=== PATIENT | male | born 1990 | race Caucasian/White ===

== ENCOUNTER 2016-07-02 22:41 | Emergency (ER) | payer SELFPAY ==
--- NOTE | 2016-07-03 02:11 | ER Document Report ---
ED General - General Chief Complaint: Knee Pain Stated Complaint: LEFT KNEE PAIN Notes: Patient is a 25-year-old male presents with spreading erythema around his left knee that has been getting progressively worse for the last 3 days. Denies any swelling of the joint or limited range of motion of the knee. Continues to walk. States it started as a small pustule that he tried to drain unsuccessfully. Since that time he has had a dull, constant, burning pain to the affected area. Nothing improves or worsens the pain. No history of similar symptoms in the past. He denies fever or constitutional symptoms. He has not seen his primary care doctor regarding today's concerns. TRAVEL OUTSIDE OF THE [place] IN LAST 30 DAYS: No - Related Data Allergies/Adverse Reactions: amoxicillin trihydrate [From Augmentin] Allergy (Verified 02/07/15 01:09) Potassium Clavulanate * [From Augmentin] Allergy (Verified 02/07/15 01:09) sulfamethoxazole [From Bactrim] Allergy (Verified 02/07/15 01:09) trimethoprim [From Bactrim] Allergy (Verified 02/07/15 01:09) Past Medical History - General Information source: Patient - Social History Smoking Status: Never Smoker Frequency of alcohol use: None Drug Abuse: None Lives with: Spouse/Significant other Family History: Reviewed & Not Pertinent Patient has suicidal ideation: No Patient has homicidal ideation: No Renal/ Medical History: Denies: Hx Peritoneal Dialysis Review of Systems - Review of Systems Notes: Constitutional: Negative for fever. HENT: Negative for sore throat. Eyes: Negative for visual changes. Cardiovascular: Negative for chest pain. Respiratory: Negative for shortness of breath. Gastrointestinal: Negative for abdominal pain, vomiting or diarrhea. Genitourinary: Negative for dysuria. Musculoskeletal: Negative for back pain. Skin: Positive for rash. Neurological: Negative for headaches, weakness or numbness. 10 point ROS negative except as marked above and in HPI. Physical Exam - Vital signs Vitals: Temp Pulse Resp BP Pulse Ox 97.6 F 86 18 154/95 H 97 07/02/16 22:46 07/02/16 22:46 07/02/16 22:46 07/02/16 22:46 07/02/16 22:46 Interpretation: Hypertensive Notes: PHYSICAL EXAMINATION: GENERAL: Well-appearing, well-nourished and in no acute distress. HEAD: Atraumatic, normocephalic. EYES: Pupils equal round and reactive to light, extraocular movements intact, sclera anicteric, conjunctiva are normal. ENT: nares patent, oropharynx clear without exudates. Moist mucous membranes. NECK: Normal range of motion, supple without lymphadenopathy LUNGS: Breath sounds clear to auscultation bilaterally and equal. No wheezes rales or rhonchi. HEART: Regular rate and rhythm without murmurs ABDOMEN: Soft, nontender, normoactive bowel sounds. No guarding, no rebound. No masses appreciated. EXTREMITIES: Normal range of motion, no pitting or edema. No cyanosis. He with a range the left knee to 90 without difficulty. Full extension present NEUROLOGICAL: No focal neurological deficits. Moves all extremities spontaneously and on command. PSYCH: Normal mood, normal affect. SKIN: Warm, Dry, normal turgor, there is a small pustule to the lateral aspect of the right patella surface with a surrounding area of erythema that extends to the proximal one third of the tibial plateau and just above the knee. Course - Re-evaluation Re-evalutation: 07/03/16 02:09 Patient presents with a small abscess of the skin likely from an ingrown hair over the left patella with surrounding cellulitis. Patient is otherwise well in appearance. I do not suspect a actual septic joint. Patient is able to range the knee to full 90. No indication for x-ray imaging. The abscess was incised and drained at the bedside with 1 mL of purulent expression. He will be started on Keflex and doxycycline for staph and strep coverage.At this time will discharge with return precautions and follow-up recommendations. Verbal discharge instructions given a the bedside and opportunity for questions given. Medication warnings reviewed. Patient is in agreement with this plan and has verbalized understanding of return precautions and the need for primary care follow-up in the next 24-72 hours. - Vital Signs Vital signs: Temp Pulse Resp BP Pulse Ox 97.8 F 93 16 149/88 H 97 07/03/16 02:58 07/03/16 02:58 07/03/16 02:58 07/03/16 02:58 07/03/16 02:58 Procedures - Incision and Drainage Left Knee Time completed: 02:10 Type: Simple Anesthetic type: 1% Lidocaine mL's of anesthetic: 1 Blade size: 11 I&D procedure: Betadine prep applied Incision Method: Incision made by scalpel Amount/type of drainage: 1 cc of purulent expression Discharge - Discharge Clinical Impression: Cellulitis of leg, left Condition: Good Disposition: HOME, SELF-CARE Additional Instructions: The rash is likely due to infection of your skin. You need to take the antibiotics as prescribed. Do not stop even if the rash goes away until you have completed all the antibiotics. The area of redness was traced out here in the emergency department with a marking pen. You need to return to emergency department if the redness spreads outside of this area by more than 2 cm in any direction. You should also return if you develop fevers with temperature greater than 101, persistent vomiting, worsening pain, or have any other symptoms that are concerning to you. Prescriptions: Cephalexin Monohydrate [Keflex 500 mg Capsule] 500 mg PO QID #28 capsule Doxycycline Hyclate 100 mg PO BID #14 capsule
[2016-07-03] MEDS ORDERED: CEPHALEXIN 500 MG CAPSULE PO ONE (02:15)
[2016-07-03] MEDS ORDERED: DOXYCYCLINE HYCLATE 100 MG TABLET PO ONE (02:15)
[2016-07-03 03:00] VITALS: BP 149/88
== END 2016-07-03 02:15 | disposition home or self-care (01) ==
LOC: ER 22:41
PROC: 0H9LXZZ Drainage of Left Lower Leg Skin, External Approach (ICD-10-PCS; principal; 2016-07-02)
DX: M25.562 Pain in left knee (principal); L03.116 Cellulitis of left lower limb
CPT/HCPCS: 99283

== ENCOUNTER 2016-07-05 01:51 | Inpatient (IN) | payer SELFPAY ==
[2016-07-05] MEDS ORDERED: VANCOMYCIN HCL INJ 1000 MG VIAL IV ONE (03:34)
--- NOTE | 2016-07-05 03:36 | ER Document Report ---
ED Suture/Wound Recheck - General Chief Complaint: Abscess Recheck Stated Complaint: LEFT KNEE PAIN Mode of Arrival: Ambulatory Information source: Patient TRAVEL OUTSIDE OF THE [place] IN LAST 30 DAYS: No - HPI Patient complains to provider of: left knee abscess recheck Notes: Patient arrives with complaints of left knee pain and redness. Patient was seen here 2 days ago was noted to have an abscess and cellulitis to the anterior knee. He had an I&D performed here in the ED with approximately 1 mL' s of purulent material drained. The patient was discharged home on Keflex and doxycycline which she has been taking. He states that today he noticed a small amount of purulent material coming from the hole from his prior I&D and states that now he is left knee and zhu are red and more painful. He is able to bear weight and flex his knee. He denies any actual fever, although he states he has been sweating a lot. He denies any nausea, vomiting, diarrhea. Denies any other injuries. He denies any numbness, tingling, weakness. He denies any other complaints. Pain is worse with movement and touching the area. - Related Data Allergies/Adverse Reactions: amoxicillin trihydrate [From Augmentin] Allergy (Verified 07/05/16 03:05) Potassium Clavulanate * [From Augmentin] Allergy (Verified 07/05/16 03:05) sulfamethoxazole [From Bactrim] Allergy (Verified 07/05/16 03:05) trimethoprim [From Bactrim] Allergy (Verified 07/05/16 03:05) Past Medical History - Social History Smoking Status: Unknown if Ever Smoked Chew tobacco use (# tins/day): No Family History: Reviewed & Not Pertinent Patient has suicidal ideation: No Patient has homicidal ideation: No Renal/ Medical History: Denies: Hx Peritoneal Dialysis Review of Systems - Review of Systems -: Yes All other systems reviewed and negative Physical Exam - Vital signs Vitals: Temp Pulse Resp BP Pulse Ox 98.4 F 87 20 141/96 H 99 07/05/16 01:54 07/05/16 01:54 07/05/16 01:54 07/05/16 01:54 07/05/16 01:54 - Notes Notes: GENERAL: alert, cooperative, nontoxic, no distress. HEAD: normocephalic, atraumatic EYES: conjunctiva pink without discharge, no external redness or swelling. EARS: no external swelling, no external redness NOSE: atraumatic, no external swelling MOUTH/THROAT: mucous membranes moist and pink, posterior pharynx without erythema, swelling, exudate. No trismus or drooling. NECK: soft, supple, full range of motion, no meningismus. CHEST: no distress, lungs clear and equal throughout. No wheezing, rales, rhonchi. CARDIAC: regular rate and rhythm, no murmur, normal capillary refill, normal pulses. No peripheral edema noted. ABDOMEN: Soft, nontender. BACK: full range of motion, no CVA tenderness. EXTREMITIES: The patient's noted to have cellulitis from the superior aspect of the patella down to the ankle on the left leg. He has full flexion and extension of the left knee with no sign of joint infection. There is a small amount of purulent material noted at the opening from prior I&D. No fluctuant abscess identified. Normal pulse and sensation distally. NEURO: alert and oriented 3, no focal deficits, full range of motion of all extremities. PYSCH: appropriate mood, affect. Patient is cooperative. SKIN: pink, warm, dry, no rash. Cellulitis to the left lower leg. Course - Re-evaluation Re-evalutation: 07/05/16 05:20 Patient resting comfortable with this time with stable vitals. Patient's nontoxic appearing. CT shows no drainable abscess or sign of osteomyelitis. Patient's review have an elevated white blood cell count. Blood cultures and wound culture are currently pending. Due to the fact that the patient has been on oral antibiotics for the last 2 days and is now having worsening redness to the entire anterior lower leg, patient was given a dose of IV antibiotics and we 'll discuss the case with the hospitalist for admission for IV antibiotics for cellulitis and outpatient antibiotic failure. I have attempted to contact the hospitalists at this time without success. 07/05/16 05:36 Discussed case with the hospitalist who agrees with admission. The patient will be admitted for further evaluation and management of his cellulitis. 07/05/16 05:37 The patient is noted to have elevated blood pressure during today's emergency department visit. The patient was informed of this finding. The patient was instructed that this may be related to pre-hypertension and requires further evaluation with a primary care provider. The patient has no hypertensive symptoms at this time. - Vital Signs Vital signs: Temp Pulse Resp BP Pulse Ox 98.4 F 99 20 141/96 H 98 07/05/16 01:56 07/05/16 01:56 07/05/16 01:56 07/05/16 01:56 07/05/16 01:56 - Laboratory Result Diagrams: 07/05/16 03:30 07/05/16 03:30 Laboratory results interpreted by me: 07/05/16 07/05/16 03:30 03:30 WBC 12.9 H Total Bilirubin 1.7 H - Diagnostic Test Radiology reviewed: Image reviewed, Reports reviewed - CT shows no drainable abscess or signs of osteomyelitis. Discharge - Discharge Clinical Impression: Cellulitis of left lower extremity Condition: Stable Disposition: ADMITTED OBSERVATION Admitting Provider: Hospitalist - Dr. Ramírez Unit Admitted: Medical Floor
[2016-07-05 03:50] LABS: ABSOLUTE BASOPHILS # (AUTO) 0.1 10^3/uL (0.0-0.2); ABSOLUTE LYMPHOCYTES (AUTO) 3.7 10^3/uL (0.5-4.7); ABSOLUTE MONOCYTES (AUTO) 1.1 10^3/uL (0.1-1.4); BASOPHILS % (AUTO) 0.5 % (0-2); EOSINOPHILS % (AUTO) 0.3 % (0-6); HEMATOCRIT 43.6 % (37.9-51.0); HEMOGLOBIN 15.6 g/dL (13.5-17.0); HGB HCT DIFFERENCE 3.2; LYMPHOCYTES % (AUTO) 28.8 % (13-45); MEAN CORPUSCULAR HEMOGLOBIN 31.4 pg (27.0-33.4); MEAN CORPUSCULAR HGB CONC 35.7 g/dL (32.0-36.0); MEAN CORPUSCULAR VOLUME 88 fl (80-97); MONOCYTES % (AUTO) 8.6 % (3-13); RED BLOOD COUNT 4.97 10^6/uL (4.35-5.55); SEGMENTED NEUTROPHILS % (AUTO) 61.8 % (42-78); WHITE BLOOD COUNT 12.9 10^3/uL (4.0-10.5)
[2016-07-05 04:14] LABS: ALANINE AMINOTRANSFERASE 54 U/L (21-72); ALBUMIN 4.6 g/dL (3.5-5.0); ALKALINE PHOSPHATASE 104 U/L (38-126); ANION GAP 14 (5-19); ASPARTATE AMINO TRANSFERASE 37 U/L (17-59); BILIRUBIN,DIRECT 0.4 mg/dL (0.0-0.4); BILIRUBIN,TOTAL 1.7 mg/dL (0.2-1.3); BLOOD UREA NITROGEN 15 mg/dL (7-20); CALCIUM 9.7 mg/dL (8.4-10.2); CARBON DIOXIDE 27 mmol/L (22-30); CHLORIDE 102 mmol/L (98-107); CREATININE RESULT 0.82 mg/dL (0.52-1.25); GLUCOSE 98 mg/dL (75-110); POTASSIUM 4.4 mmol/L (3.6-5.0); SODIUM 142.8 mmol/L (137-145); TOTAL PROTEIN 7.3 g/dL (6.3-8.2)
[2016-07-05] MEDS ORDERED: ACETAMINOPHEN 325 MG TABLET PO PRN (05:33)
[2016-07-05] MEDS ORDERED: ONDANSETRON HCL INJ/PF 4 MG/2 ML SDV IV PRN (05:33)
[2016-07-05] MEDS ORDERED: NORMAL SALINE 1000 ML 1,000 ML IV ONE (05:35)
[2016-07-05] MEDS ORDERED: VANCOMYCIN HCL 0 MG in DEXTROSE 5%-WATER 250 ML IV NR (05:45)
[2016-07-05] MEDS: HEPARIN SOD (PORCINE) 5,000 UNIT/ML 1 ML SYRINGE SUBCUT SCH ×3 (06:18→22:49)
--- NOTE | 2016-07-05 06:34 | PDOC H&P ---
History of Present Illness Admission Date/PCP: 07/05/16 05:33 Patient complains of: Left knee pain and swelling History of Present Illness: JUAN CARLOS BONILLA is a 25 year old male with a past medical history of remote tracheomalacia with residual altered voice and GERD. Who is seen in the emergency room 48 hours ago for an abscess to the left knee he had an IND performed and discharge with Keflex and doxycycline but has had worsening erythema and pain prompting a return to the emergency room for evaluation. He' s found to have leukocytosis and marketed localized swelling to the knee joint with reduced range of motion secondary to pain and swelling. CT of the joint is unremarkable patient is placed on vancomycin, symptomatically management referred to the hospitalist for admission. Patient denies prior episode of MRSA Past Medical History Medical History: None Past Surgical History Past Surgical History: Reports: Other - 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 and GERD Social History Information Source: Patient Lives with: Family Smoking Status: Unknown if Ever Smoked Hx Recreational Drug Use: No Drugs: None Hx Prescription Drug Abuse: No - Advance Directive Resuscitation Status: Full Code Family History Family History: Hypertension Parental Family History Reviewed: Yes Children Family History Reviewed: Yes Sibling(s) Family History Reviewed.: Yes Medication/Allergy Home Medications: Clindamycin HCl 300 mg PO ASDIR #56 capsule 02/07/15 Cephalexin Monohydrate [Keflex 500 mg Capsule] 500 mg PO QID #28 capsule Doxycycline Hyclate 100 mg PO BID #14 capsule 07/03/16 Allergies/Adverse Reactions: amoxicillin trihydrate [From Augmentin] Allergy (Verified 07/05/16 03:05) Potassium Clavulanate * [From Augmentin] Allergy (Verified 07/05/16 03:05) sulfamethoxazole [From Bactrim] Allergy (Verified 07/05/16 03:05) trimethoprim [From Bactrim] Allergy (Verified 07/05/16 03:05) Review of Systems Constitutional: ABSENT: chills, fever(s), headache(s), weight gain, weight loss Eyes: ABSENT: visual disturbances Ears: ABSENT: hearing changes Cardiovascular: ABSENT: chest pain, dyspnea on exertion, edema, orthropnea, palpitations Respiratory: ABSENT: cough, hemoptysis Gastrointestinal: ABSENT: abdominal pain, constipation, diarrhea, hematemesis, hematochezia, nausea, vomiting Genitourinary: ABSENT: dysuria, hematuria Musculoskeletal: ABSENT: joint swelling Integumentary: ABSENT: rash, wounds Neurological: ABSENT: abnormal gait, abnormal speech, confusion, dizziness, focal weakness, syncope Psychiatric: ABSENT: anxiety, depression, homidical ideation, suicidal ideation Endocrine: ABSENT: cold intolerance, heat intolerance, polydipsia, polyuria Hematologic/Lymphatic: ABSENT: easy bleeding, easy bruising Physical Exam Vital Signs: Temp Pulse Resp BP Pulse Ox 98.4 F 99 20 141/96 H 98 07/05/16 01:56 07/05/16 01:56 07/05/16 01:56 07/05/16 01:56 07/05/16 01:56 General appearance: PRESENT: no acute distress, well-developed, well-nourished Head exam: PRESENT: atraumatic, normocephalic Eye exam: PRESENT: conjunctiva pink, EOMI, PERRLA. ABSENT: scleral icterus Ear exam: PRESENT: normal external ear exam Mouth exam: PRESENT: moist, tongue midline Neck exam: ABSENT: carotid bruit, JVD, lymphadenopathy, thyromegaly Respiratory exam: PRESENT: clear to auscultation ilda. ABSENT: rales, rhonchi, wheezes Cardiovascular exam: PRESENT: RRR. ABSENT: diastolic murmur, rubs, systolic murmur Pulses: PRESENT: normal dorsalis pedis pul Vascular exam: PRESENT: normal capillary refill GI/Abdominal exam: PRESENT: normal bowel sounds, soft. ABSENT: distended, guarding, mass, organolmegaly, rebound, tenderness Rectal exam: PRESENT: deferred Extremities exam: PRESENT: joint swelling - Left knee joint swelling and pain Neurological exam: PRESENT: alert, awake, oriented to person, oriented to place , oriented to time, oriented to situation, CN II-XII grossly intact. ABSENT: motor sensory deficit Psychiatric exam: PRESENT: appropriate affect, normal mood. ABSENT: homicidal ideation, suicidal ideation Skin exam: PRESENT: other - 0.5 x 0.5 cm Open ulcer over the left patella with serosanguineous drainage Adult Front & Back Image: 1 - Erythema swelling and pain Results Impressions: Lower Extremity CT 07/05/16 03:33 IMPRESSION: Generalized prepatellar soft tissue swelling without definitive abscess. No evidence for osteomyelitis. Assessment & Plan - Diagnosis (1) MRSA cellulitis Is this a current diagnosis for this admission?: YesPlan: Vancomycin empirically patient's history is complicated by Augmentin and Bactrim allergies. Follow-up CBC and culture pending consider orthopedic consultation for arthrocentesis if not significantly improved in 24 hours (2) Leg pain Is this a current diagnosis for this admission?: YesPlan: Symptomatic management - Time Time Spent: 30 to 50 Minutes
[2016-07-05] MEDS: KETOROLAC TROMETHAMINE INJ/PF 30 MG/1 ML SDV IV PRN ×2 (11:13→17:15)
[2016-07-05] MEDS: DOCUSATE SODIUM 100 MG CAPSULE PO SCH ×2 (11:14→17:10)
[2016-07-05] MEDS: VANCOMYCIN HCL 1,250 MG in DEXTROSE 5%-WATER 250 ML IV SCH ×2 (11:14→17:10)
[2016-07-06 02:41] LABS: CREATININE RESULT 0.75 mg/dL (0.52-1.25)
[2016-07-06] MEDS: VANCOMYCIN HCL 1,250 MG in DEXTROSE 5%-WATER 250 ML IV SCH (02:48)
[2016-07-06] MEDS: KETOROLAC TROMETHAMINE INJ/PF 30 MG/1 ML SDV IV PRN (02:50)
[2016-07-06] MEDS: HEPARIN SOD (PORCINE) 5,000 UNIT/ML 1 ML SYRINGE SUBCUT SCH (06:01)
[2016-07-06 06:58] LABS: ABSOLUTE EOSINOPHILS # (AUTO) 0.1 10^3/uL (0.0-0.6); ABSOLUTE LYMPHOCYTES (AUTO) 2.9 10^3/uL (0.5-4.7); ABSOLUTE MONOCYTES (AUTO) 0.6 10^3/uL (0.1-1.4); BASOPHILS % (AUTO) 0.6 % (0-2); EOSINOPHILS % (AUTO) 1.2 % (0-6); HEMATOCRIT 40.4 % (37.9-51.0); HEMOGLOBIN 14.6 g/dL (13.5-17.0); HGB HCT DIFFERENCE 3.4; LYMPHOCYTES % (AUTO) 38.2 % (13-45); MEAN CORPUSCULAR HEMOGLOBIN 31.2 pg (27.0-33.4); MEAN CORPUSCULAR VOLUME 87 fl (80-97); MONOCYTES % (AUTO) 7.2 % (3-13); RED BLOOD COUNT 4.67 10^6/uL (4.35-5.55); RED CELL DISTRIBUTION WIDTH 12.1 % (11.5-14.0); SEGMENTED NEUTROPHILS % (AUTO) 52.8 % (42-78); WHITE BLOOD COUNT 7.6 10^3/uL (4.0-10.5)
[2016-07-06 08:35] VITALS: BP 126/77
[2016-07-06] MEDS: DOCUSATE SODIUM 100 MG CAPSULE PO SCH (09:48)
[2016-07-06] MEDS ORDERED: LANSOPRAZOLE 30 MG TAB.RAP.DR PO SCH (10:00)
[2016-07-06] MEDS ORDERED: VANCOMYCIN HCL 1,500 MG in DEXTROSE 5%-WATER 250 ML IV SCH (10:00)
--- NOTE | 2016-07-06 15:45 | PDOC DISCHARGE SUMMARY ---
General - Admit/Disc Date/PCP Admission Date/Primary Care Provider: 07/05/16 08:02 Discharge Date: 07/06/16 - Discharge Diagnosis (1) Left leg cellulitis Is this a current diagnosis for this admission?: YesSummary: Patient failed outpatient antibiotic therapy with keflex and doxycyline. Cellulitis is all but resolved today. Will continue clindaycin 300 mg po qid x 9 days. Naproxen 500 mg po q12h for pain - Additional Information Resuscitation Status: Full Code Discharge Diet: Regular Discharge Activity: Activity As Tolerated, Balance Activity w/Rest Home Medications: Lansoprazole [Prevacid 30 mg Odt Tablet] 30 mg PO DAILY 07/05/16 Multivit-Min/Iron Fum/Folic AC [Kwutc-Nhzatwh-Drjnleje Tablet] 1 tab PO DAILY Acetaminophen [Tylenol 325 mg Tablet] 650 mg PO Q4HP PRN tablet 07/06/16 Clindamycin HCl [Cleocin 300 mg Capsule] 300 mg PO QID #40 capsule 07/06/16 Naproxen Sodium [Naprelan] 500 mg PO BID PRN #30 tablet.sa 07/06/16 History of Present Illness Patient complains of: Left knee redness and swelling History of Present Illness: JUAN CARLOS BONILLA is a 25 year old male with a past medical history of remote tracheomalacia with residual altered voice and GERD. Who is seen in the emergency room 48 hours ago for an abscess to the left knee he had an IND performed and discharge with Keflex and doxycycline but has had worsening erythema and pain prompting a return to the emergency room for evaluation. He' s found to have leukocytosis and marketed localized swelling to the knee joint with reduced range of motion secondary to pain and swelling. CT of the joint is unremarkable patient is placed on vancomycin, symptomatically management referred to the hospitalist for admission. Patient denies prior episode of MRSA Hospital Course Hospital Course: Patient was admitted to the hospitalist's service for admission. He was started on Zosyn IV and Vancomycin IV. Blood cultures and wound cultures were pending. Wound culture today showed gram positive cocci in clusters. The erythema and swelling are almost completely resolved. He would like to be discharged home. Leucocytosis has resolved. Physical Exam Vital Signs: Temp Pulse Resp BP Pulse Ox 98.2 F 87 18 126/77 H 100 07/06/16 10:36 07/06/16 10:36 07/06/16 10:36 07/06/16 10:36 07/06/16 10:36 Intake & Output 07/05/16 07/06/16 07/07/16 06:59 06:59 06:59 Intake Total 1150 650 Balance 1150 650 Weight 88.4 kg General appearance: PRESENT: no acute distress, well-developed, well-nourished Head exam: PRESENT: atraumatic, normocephalic Eye exam: PRESENT: conjunctiva pink, EOMI, PERRLA. ABSENT: scleral icterus Ear exam: PRESENT: normal external ear exam Mouth exam: PRESENT: moist, tongue midline Neck exam: ABSENT: carotid bruit, JVD, lymphadenopathy, thyromegaly Respiratory exam: PRESENT: clear to auscultation ilda. ABSENT: rales, rhonchi, wheezes Cardiovascular exam: PRESENT: RRR. ABSENT: diastolic murmur, rubs, systolic murmur Pulses: PRESENT: normal dorsalis pedis pul Vascular exam: ABSENT: normal capillary refill, pallor, other GI/Abdominal exam: PRESENT: normal bowel sounds, soft. ABSENT: distended, guarding, mass, organolmegaly, rebound, tenderness Rectal exam: PRESENT: deferred Extremities exam: PRESENT: tenderness - left anterior knee Musculoskeletal exam: PRESENT: ambulatory, tenderness - anterior lateral to left patella, 1 cm area of remaing erythema Neurological exam: PRESENT: alert Psychiatric exam: PRESENT: appropriate affect, normal mood. ABSENT: homicidal ideation, suicidal ideation Skin exam: PRESENT: erythema - 1 cm erythema, warm, other Results Laboratory Results: 07/06/16 06:25 07/06/16 01:53 07/06/16 07/06/16 01:53 06:25 WBC 7.6 RBC 4.67 Hgb 14.6 Hct 40.4 MCV 87 MCH 31.2 MCHC 36.0 RDW 12.1 Plt Count 256 Seg Neutrophils % 52.8 Lymphocytes % 38.2 Monocytes % 7.2 Eosinophils % 1.2 Basophils % 0.6 Absolute Neutrophils 4.0 Absolute Lymphocytes 2.9 Absolute Monocytes 0.6 Absolute Eosinophils 0.1 Absolute Basophils 0.0 Creatinine 0.75 Est GFR ( Amer) > 60 Est GFR (Non-Af Amer) > 60 Impressions: Lower Extremity CT 04/16/17 03:33 IMPRESSION: Generalized prepatellar soft tissue swelling without definitive abscess. No evidence for osteomyelitis. Qualifiers PATEINT BEING DISCHARGED WITH ANY OF THE FOLLOWING DIAGNOSIS?: No Plan Discharge Plan: Home with Time Spent: Less than 30 Minutes
== END 2016-07-06 11:32 | disposition home or self-care (01) | DRG 603 ==
LOC: ER 01:51 → EH 05:33 → UNDOADMOB 05:41 → EH 05:41 → OBSVTOIN 08:02 → 4N 10:33
PROVIDERS: ADMIT Internal Medicine; ATTEND Internal Medicine
DX: L03.116 Cellulitis of left lower limb (principal); B95.62 Methicillin resistant Staphylococcus aureus infection as the cause of diseases classified elsewhere; K21.9 Gastro-esophageal reflux disease without esophagitis; Z79.899 Other long term (current) drug therapy; Z88.0 Allergy status to penicillin; Z88.8 Allergy status to other drugs, medicaments and biological substances; Z88.2 Allergy status to sulfonamides; Z88.3 Allergy status to other anti-infective agents; Z82.49 Family history of ischemic heart disease and other diseases of the circulatory system
CPT/HCPCS: 36415; 80053; 80202; 82565; 85025; 87040; 87070; 87075; 87077; 87186; 87205; 96361; 96365; 96372; 99285; G0378; J1644; J1885; J3370; J7030; J7060

== ENCOUNTER 2016-12-25 23:48 | Emergency (ER) | payer SELFPAY ==
--- NOTE | 2016-12-26 01:12 | ER Document Report ---
ED Eye Complaint - General Chief Complaint: Eye Problem Stated Complaint: EYE AND ABDOMINAL PAIN Time Seen by Provider: 12/26/16 00:57 Mode of Arrival: Ambulatory Information source: Patient Notes: Patient is a 26-year-old male comes into the emergency room with 3 major complaints this major complaint #1 is his right eye is bloodshot and itchy with having some crusting over in the morning when he wakes up. Other thing is he has some bilateral numbness and tingling in his fingers when he is driving and when he does some repetitive motion work in 3 mother has a history of fibromyalgia patient states he feels kind of a upset abdominal area occasionally been going on since July comes and goes but nothing real specific and wanted to know if that was related to fibromyalgia. Currently is only asking that we intervene on his eye and possible wrist problems. TRAVEL OUTSIDE OF THE [place] IN LAST 30 DAYS: No - HPI Onset: Other - The eye has been going on for approximately 3 days and his wrist numbness and tingling in his fingers of both hands and up to the elbows for about 3 months. Denies any known trauma. 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 Eye location: Right Injury: No Occurred at: Other - Unknown Quality of pain: Other - Itchy Severity: Mild Pain Level: 2 Safety glasses worn: No Contact lenses worn: No Associated symptoms: Itching, Redness. denies: Pain, Photophobia, Eyelid swelling, Orbital swelling, Foreign body sensation, Blurred vision, Decreased vision - Related Data Allergies/Adverse Reactions: amoxicillin trihydrate [From Augmentin] Allergy (Verified 07/05/16 03:05) Potassium Clavulanate * [From Augmentin] Allergy (Verified 07/05/16 03:05) sulfamethoxazole [From Bactrim] Allergy (Verified 07/05/16 03:05) trimethoprim [From Bactrim] Allergy (Verified 07/05/16 03:05) Past Medical History - General Information source: Patient - Social History Smoking Status: Never Smoker Chew tobacco use (# tins/day): No Frequency of alcohol use: None Drug Abuse: None Lives with: Family Family History: None, Hypertension - Medical History Medical History: Negative - Past Medical History Cardiac Medical History: Reports: None Pulmonary Medical History: Reports: None EENT Medical History: Reports: None Neurological Medical History: Reports: None Endocrine Medical History: Reports: None Renal/ Medical History: Reports: None. 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 denies: Double vision Cardiovascular: No symptoms reported Respiratory: No symptoms reported Gastrointestinal: No symptoms reported Genitourinary: No symptoms reported Male Genitourinary: No symptoms reported Skin: No symptoms reported Hematologic/Lymphatic: No symptoms reported Neurological/Psychological: Numbness, Tingling -: Yes All other systems reviewed and negative Physical Exam - Vital signs Vitals: Temp Pulse Resp BP Pulse Ox 97.8 F 83 16 150/96 H 96 12/25/16 23:52 12/25/16 23:52 12/25/16 23:52 12/25/16 23:52 12/25/16 23:52 Interpretation: Hypertensive - Notes Notes: Physical exam patient shows patient to be mildly uncomfortable. Has a little bit of laryngitis noted in his speaking. - General General appearance: Appears well, Other - Slightly uncomfortable appearing In distress: None - HEENT Head: Normocephalic, Atraumatic Eyes: Tears, Other - Examination patient's right eye shows that there is a mild subconjunctival hemorrhage on the lateral side of the right eye. Conjunctiva is moderately red. Also evaluating patient for injected conjunctiva on the medial aspect of the eye as well. Patient has some mild tearing and watering there is no sign of any crusting at this time. Tangential light does not show any sign of a foreign body and patient has no foreign body sensation.. No: Pale conjunctiva, Periorbital edema Conjunctiva: Injected Eyelashes: Normal Pupils: PERRL Visual acuity- Right eye: 20/25 Visual acuity- Left eye: 20/20 Visual acuity- Both eyes: 20/20 Corrective lenses worn: Yes Visual cline normal: Yes Ears: Normal Tympanic membrane: Normal Sinus: Maxillary Nasal: Clear rhinorrhea. No: Normal Mouth/Lips: Normal Mucous membranes: Moist Pharynx: Normal Neck: Normal - Respiratory Respiratory status: No respiratory distress Chest status: Nontender Breath sounds: Normal. No: Rales, Rhonchi, Stridor, Wheezing Chest palpation: Normal - Cardiovascular Rhythm: Regular Heart sounds: Normal auscultation Murmur: No - Abdominal Inspection: Normal Distension: No distension Bowel sounds: Normal Tenderness: Tender. No: McBurney's point, [place]'s sign, Guarding, Rebound Organomegaly: No: No organomegaly - Back Back: Normal. No: Vertebra tenderness - Extremities General upper extremity: Other - Examination patient's bilateral upper extremities and particularly his bilateral median nerves with a new median nerve strike patient has positive radiation of numbness and tingling both to the fingers on in both hands on the third fourth and fifth digits. Patient also has a positive Phalen's sign. Further inspection shows that he has good Flow in the nailbeds of both hands in the fingertips. 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 He has good radial and ulnar pulses. Patient also has good upper extremity DTRs.. No: Normal inspection General lower extremity: Normal inspection Wrist: Tender. 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 negative: Erythema Skin Turgor: Elastic Course - Vital Signs Vital signs: Temp Pulse Resp BP Pulse Ox 97.8 F 83 16 150/96 H 96 12/25/16 23:52 12/25/16 23:52 12/25/16 23:52 12/25/16 23:52 12/25/16 23:52 - Transfer of Care Notes: I discussed with patient about fibromyalgia and possible congenital connections. I have informed him this is something we do [place] here to emergency room. Patient has no real severe abdominal pain or discomfort he has no nausea or vomiting his physical exam on the abdomen is really benign. This point of inform patient he probably needs to go to a clinic and have further workup done. At this point we are going to treating for a allergic junk colitis as well as a subconjunctival hemorrhage. Both of them on the right. As well as some carpal tunnel syndrome we will treat with some steroids. 12/26/16 01:21 Discharge - Discharge Clinical Impression: Subconjunctival hemorrhage of right eye, Allergic conjunctivitis of right eye, Carpal tunnel syndrome, bilateral upper limbs Disposition: HOME, SELF-CARE Instructions: Conjunctivitis, Allergic Additional Instructions: Also treated for a allergic conjunctivitis as well as bilateral carpal tunnel syndrome. And a subconjunctival hemorrhage in the right side. The hemorrhage could be caused by any number of things including sneezing coughing bending over lifting any number of things can cause you to possible blood vessel in the eye. With the prominence of that are out there currently allergic conjunctivitis is a high possibility wire have been watering and crusting. Highly suggest washing hands anytime you touch her eyes. I have also informed to you probably need to follow-up with a primary care or walk-in clinic for further workup on your "fibromyalgia". Get over the counter Antihistamin eye drops. Called Opcon-A Prescriptions: Prednisone [Sterapred Ds] 10 mg PO ASDIR PRN 6 Days #1 tab.ds.pk PRN Reason: Forms: Elevated Blood Pressure
[2016-12-26 01:47] VITALS: BP 134/94
== END 2016-12-26 02:16 | disposition home or self-care (01) ==
LOC: ER 23:48
DX: G56.03 Carpal tunnel syndrome, bilateral upper limbs (principal); H11.31 Conjunctival hemorrhage, right eye; H10.11 Acute atopic conjunctivitis, right eye; H57.11 Ocular pain, right eye; R10.9 Unspecified abdominal pain
CPT/HCPCS: 99283

== ENCOUNTER 2017-03-21 01:08 | Emergency (ER) | payer SELFPAY ==
[2017-03-21 01:14] VITALS: BP 146/98
--- NOTE | 2017-03-21 02:12 | ER Document Report ---
HPI - HPI Pain Level: 3 Notes: Patient is a 26-year-old male with a history of previous MRSA infection who presents ED complaining of a small abscess in his right nostril with intermittent purulent discharge. Patient states that he believes that he has a MRSA infection in his nose. Patient states that his symptoms began over the last couple days. He is still eating and drinking without difficulties. He is urinating normally and having normal bowel movements. Patient denies any other recent illness. She states that he is allergic to Augmentin and Bactrim. Denies any headache, fever, head injury, neck pain, URI, sore throat, chest pain , palpitations, syncope, cough, shortness of breath, wheeze, dyspnea, abdominal pain, nausea/vomiting/diarrhea, urinary retention, dysuria, hematuria. - ROS Notes: REVIEW OF SYSTEMS: CONSTITUTIONAL : Denies fever, chills, or sweats. Denies recent illness. EENT: Denies eye, ear, throat, or mouth pain or symptoms. Denies nasal or sinus congestion or discharge. Denies throat, tongue, or mouth swelling or difficulty swallowing. CARDIOVASCULAR: Denies chest pain. Denies palpitations or racing or irregular heart beat. RESPIRATORY: Denies cough, cold, or chest congestion. Denies shortness of breath, difficulty breathing, or wheezing. GASTROINTESTINAL: Denies abdominal pain or distention. Denies nausea, vomiting , or diarrhea. Denies blood in vomitus, stools, or per rectum. Denies black, tarry stools. Denies constipation. GENITOURINARY: Denies difficulty urinating, painful urination, burning, frequency, blood in urine, or discharge. MUSCULOSKELETAL: Denies back or neck pain or stiffness. Denies joint pain or swelling. SKIN: see hpi NEUROLOGICAL: Denies passing out or loss of consciousness. Denies dizziness or lightheadedness. Denies headache. Denies problems with gait or speech. Denies sensory loss, numbness, or tingling. Denies seizures. ALL OTHER SYSTEMS REVIEWED AND NEGATIVE. 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 HEAD: Atraumatic, normocephalic. EYES: Pupils equal round and reactive to light, extraocular movements intact, sclera anicteric, conjunctiva are normal. ENT: EAC clear b/l. TM's intact b/l without erythema, fluid, or perforation. Nares patent and without discharge. oropharynx clear without exudates. No tonsilar hypertrophy or erythema. Moist mucous membranes. No sinus tenderness. NECK: Normal range of motion, supple without lymphadenopathy LUNGS: Breath sounds clear to auscultation bilaterally and equal. No wheezes rales or rhonchi. HEART: Regular rate and rhythm without murmurs, rubs, gallops. NEUROLOGICAL: Cranial nerves grossly intact. PSYCH: Normal mood, normal affect. SKIN: Rt nostril: + small 0.3cm abscess noted with site erythema. No streaks. + mild tenderness. The erythema does not extend to the lower nare and is in near the distal opening superiorly. - INFECTION CONTROL TRAVEL OUTSIDE OF THE [place] IN LAST 30 DAYS: No - RESPIRATORY O2 Sat by Pulse Oximetry: 99 Course - Re-evaluation Re-evalutation: 03/21/17 02:10 Patient is an afebrile, well-hydrated, 26-year-old male who presents the ED with a very small abscess to the right nostril. Scant purulent discharge was expressed and a wound culture was obtained. Vitals are stable. PE is otherwise unremarkable. Patient does have a history of MRSA, so I will cover him with clindamycin. Advised using mupirocin cream inside of the nose 2-3 times a day for 2 weeks. Conservative measures otherwise for symptoms. Recheck with your PCM in 3-5 days. Return to the ED with any worsening/ concerning symptoms otherwise as reviewed in discharge. Patient is in agreement. - Vital Signs Vital signs: Temp Pulse Resp BP Pulse Ox 97.9 F 74 18 146/98 H 99 03/21/17 01:13 03/21/17 01:13 03/21/17 01:13 03/21/17 01:13 03/21/17 01:13 Discharge - Discharge Clinical Impression: Abscess Condition: Stable Disposition: HOME, SELF-CARE Instructions: Abscess ([facility]), Clindamycin ([facility]) Additional Instructions: Keep the skin clean Wash with soap and water Tylenol/ibuprofen if needed Triple antibiotic ointment 3x daily as directed for 2-3 weeks Consider bleach bath Take medication as directed Monitor for any worsening symptoms Recheck with your PCM in 3-5 days Return to the ED with any worsening symptoms and/or development of fever, headache, chest pain, palpitations, syncope, shortness of breath, trouble breathing, abdominal pain, n/v/d, abscess, purulent discharge, red streaks, worsening swelling, or other worsening symptoms that are concerning to you. Prescriptions: Clindamycin HCl [Cleocin 300 mg Capsule] 300 mg PO TID #30 capsule Mupirocin 1 gm TP TID #1 bottle Forms: Elevated Blood Pressure Referrals: EMMANUEL ORTIZ MD [ACTIVE STAFF] - Follow up as needed
[2017-03-21] MEDS ORDERED: CLINDAMYCIN HCL 150 MG CAPSULE PO ONE (02:13)
== END 2017-03-21 02:52 | disposition home or self-care (01) ==
LOC: ER 01:08
DX: J34.0 Abscess, furuncle and carbuncle of nose (principal); Z86.14 Personal history of Methicillin resistant Staphylococcus aureus infection
CPT/HCPCS: 87070; 87077; 87186; 87205; 99283

== ENCOUNTER 2017-06-24 23:28 | Emergency (ER) | payer SELFPAY ==
[2017-06-25] MEDS ORDERED: SUCRALFATE 1 GM TABLET PO ONE (04:04)
[2017-06-25] MEDS ORDERED: LIDOCAINE 2% VISCOUS SOLN 20 ML UDCUP PO ONE (04:05)
[2017-06-25] MEDS ORDERED: MAG HYDROX/AL HYDROX/SIMETH SUSP 30 ML UDCUP PO ONE (04:05)
[2017-06-25] MEDS ORDERED: METOCLOPRAMIDE HCL ORAL SOLN 10 MG/10 ML UDCUP PO ONE (04:05)
--- NOTE | 2017-06-25 04:26 | ER Document Report ---
ED General - General Chief Complaint: Chest Pain Stated Complaint: HEADACHE Time Seen by Provider: 06/25/17 03:52 Notes: Patient is a 26-year-old male who comes emergency department for chief complaint of pain in his throat and chest, he states he was eating a pop tart when he felt discomfort, he states that since that time he has felt uncomfortable area. He states he took Tums because he thought it was GERD but it did not help. He denies difficulty breathing, denies nausea or vomiting. He has a history of tracheomalacia and subglottic stenosis, has had multiple endoscopies, takes Prilosec at home. He denies any other medical history. TRAVEL OUTSIDE OF THE [place] IN LAST 30 DAYS: No - Related Data Allergies/Adverse Reactions: amoxicillin trihydrate [From Augmentin] Allergy (Verified 07/05/16 03:05) Potassium Clavulanate * [From Augmentin] Allergy (Verified 07/05/16 03:05) sulfamethoxazole [From Bactrim] Allergy (Verified 07/05/16 03:05) trimethoprim [From Bactrim] Allergy (Verified 07/05/16 03:05) Past Medical History - General Information source: Patient - Social History Smoking Status: Never Smoker Frequency of alcohol use: None Drug Abuse: None Lives with: Family Family History: None, Hypertension Patient has suicidal ideation: No Patient has homicidal ideation: No Pulmonary Medical History: Reports: Hx Asthma - as a child, Hx Pneumonia Renal/ Medical History: Denies: Hx Peritoneal Dialysis Past Surgical History: Reports: Hx Nose Surgery - septal hematoma, Hx Tonsillectomy, Other - 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 and GERD - Immunizations Immunizations up to date: No Hx Diphtheria, Pertussis, Tetanus Vaccination: Yes Review of Systems - Review of Systems Constitutional: No symptoms reported EENT: No symptoms reported Cardiovascular: See HPI Respiratory: No symptoms reported Gastrointestinal: See HPI Genitourinary: No symptoms reported Male Genitourinary: No symptoms reported Musculoskeletal: No symptoms reported Skin: No symptoms reported Hematologic/Lymphatic: No symptoms reported Neurological/Psychological: No symptoms reported Physical Exam - Vital signs Vitals: Temp Pulse Resp BP Pulse Ox 98.5 F 86 18 131/85 H 100 06/24/17 23:33 06/24/17 23:33 06/24/17 23:33 06/24/17 23:33 06/24/17 23:33 Interpretation: Normal - General General appearance: Appears well In distress: None - HEENT Head: Normocephalic, Atraumatic Eyes: Normal Pupils: PERRL Nasal: Normal Mouth/Lips: Normal Mucous membranes: Normal Pharynx: Normal Neck: Normal - Respiratory Respiratory status: No respiratory distress Chest status: Nontender Breath sounds: Normal. No: Decreased air movement, Stridor, Wheezing Chest palpation: Normal - Cardiovascular Rhythm: Regular Heart sounds: Normal auscultation Murmur: No - Abdominal Inspection: Normal Distension: No distension Bowel sounds: Normal Tenderness: Nontender. No: Tender, Guarding Organomegaly: No organomegaly - Back Back: Normal, Nontender - Extremities General upper extremity: Normal inspection, Nontender, Normal color, Normal ROM , Normal temperature General lower extremity: Normal inspection, Nontender, Normal color, Normal ROM , Normal temperature, Normal weight bearing. No: Iris's sign - Neurological Neuro grossly intact: Yes Cognition: Normal Orientation: AAOx4 [place] Coma Scale Eye Opening: Spontaneous [place] Coma Scale Verbal: Oriented [place] Coma Scale Motor: Obeys Commands [place] Coma Scale Total: 15 Speech: Normal Motor strength normal: LUE, RUE, LLE, RLE Sensory: Normal - Psychological Associated symptoms: Normal affect, Normal mood - Skin Skin Temperature: Warm Skin Moisture: Dry Skin Color: Normal Course - Re-evaluation Re-evalutation: EKG sinus rhythm with no arrhythmia or ischemic findings. Chest x-ray unremarkable with no evidence of perforation, no mediastinal air, no other abnormality noted. Patient reports improvement after GI cocktail, symptoms have not completely resolved, however he is able to eat and drink without any difficulty. No evidence of obstruction, suspect gastrointestinal source of his symptoms, discussed with patient, adding Carafate to his regimen, referred to gastroenterology, discussed follow-up and return precautions. Patient states understanding and agreement. - Vital Signs Vital signs: Temp Pulse Resp BP Pulse Ox 98.5 F 86 24 H 117/88 H 98 06/24/17 23:33 06/24/17 23:33 06/25/17 06:17 06/25/17 06:17 06/25/17 06:17 Discharge - Discharge Clinical Impression: Belching Chest pain Qualifiers: Chest pain type: unspecified Qualified Code(s): R07.9 - Chest pain, unspecified Condition: Stable Disposition: HOME, SELF-CARE Additional Instructions: The chest x-ray and EKG are normal. Your symptoms are most suggestive of esophageal abrasion and spasm. Continue omeprazole, take Carafate along with it , this should resolve with time. Follow closely with gastroenterology referral. Return if you worsen including inability to eat or drink, vomiting, fever, worsening pain, difficulty breathing, or any other concerning or worsening symptoms. Prescriptions: Sucralfate [Carafate 1 gm Tablet] 1 gm PO QID #40 tablet Forms: Return to Work Referrals: ANKUR FLANNERY MD [ACTIVE STAFF] - Follow up in 3-5 days JAEL SALCIDO MD [ACTIVE STAFF] - Follow up in 3-5 days
--- NOTE | 2017-06-25 04:37 | RADIOLOGY REPORT (SQ) ---
EXAM DESCRIPTION: CHEST 2 VIEWS CLINICAL HISTORY: chest pain COMPARISON: None. FINDINGS: Frontal and lateral views of the chest. The cardiomediastinal silhouette has normal size and contour. No consolidation, pneumothorax, or pleural effusion. 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 Leads overlie the chest. Low lung volumes. Upper abdominal soft tissues are unremarkable. IMPRESSION: 1. No acute pulmonary process identified.
[2017-06-25] MEDS ORDERED: HYDROCODONE/ACETAMINOPHEN 5-325 MG (6 TAB/ER DISP) PO PRN (05:42)
[2017-06-25 06:23] VITALS: BP 117/88
--- NOTE | 2017-06-25 10:30 | EKG REPORT ---
SEVERITY:- NORMAL ECG - SINUS RHYTHM : Confirmed by: Sher Martino 25-Jun-2017 10:29:43
== END 2017-06-25 06:23 | disposition home or self-care (01) ==
LOC: ER 23:28
DX: K21.9 Gastro-esophageal reflux disease without esophagitis (principal); Z79.899 Other long term (current) drug therapy; R14.2 Eructation; R07.9 Chest pain, unspecified; R07.0 Pain in throat; J45.909 Unspecified asthma, uncomplicated; Z88.0 Allergy status to penicillin; Z88.1 Allergy status to other antibiotic agents
CPT/HCPCS: 93005; 99285; 71046; 93010; J3490

== ENCOUNTER 2017-08-02 23:31 | Emergency (ER) | payer SELFPAY ==
[2017-08-03 00:11] VITALS: BP 140/96
[2017-08-03] MEDS ORDERED: PREDNISONE 20 MG TABLET PO ONE (01:38)
--- NOTE | 2017-08-03 01:42 | ER Document Report ---
ED Skin Rash/Insect Bite/Abscs - General Chief Complaint: Rash Stated Complaint: RASH Time Seen by Provider: 08/03/17 01:34 Mode of Arrival: Ambulatory Information source: Patient TRAVEL OUTSIDE OF THE [place] IN LAST 30 DAYS: No - HPI Patient complains to provider of: Skin rash/lesion Notes: Patient is here with complaints of rash. He states that he was pulling weeds in his backyard a few days ago wearing shorts and flip-flops and developed a rash to his feet lower legs and arms. States that he thinks it is poison miguelina. He has been using calamine lotion and Benadryl as well as topical hydrocortisone cream and states that it does not seem to be getting better and actually seems to be getting worse. The rash is itchy. It is not painful. He denies any fever. He denies any difficulty breathing or swallowing. No nausea , vomiting, diarrhea. No new soaps, detergents, lotions, occasions. He denies any known sick contacts. He denies sustaining any new places. No hotel stays. He has no other complaints at this time. - Related Data Allergies/Adverse Reactions: amoxicillin trihydrate [From Augmentin] Allergy (Verified 07/05/16 03:05) Potassium Clavulanate * [From Augmentin] Allergy (Verified 07/05/16 03:05) sulfamethoxazole [From Bactrim] Allergy (Verified 07/05/16 03:05) trimethoprim [From Bactrim] Allergy (Verified 07/05/16 03:05) Past Medical History - Social History Smoking Status: Unknown if Ever Smoked Family History: None, Hypertension Pulmonary Medical History: Reports: Hx Asthma - as a child, Hx Pneumonia Renal/ Medical History: Denies: Hx Peritoneal Dialysis Past Surgical History: Reports: Hx Nose Surgery - septal hematoma, Hx Tonsillectomy, Other - 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 HEAD: normocephalic, atraumatic EYES: conjunctiva pink without discharge, no external redness or swelling. EARS: no external swelling, no external redness NOSE: atraumatic, no external swelling MOUTH/THROAT: mucous membranes moist and pink NECK: soft, supple, full range of motion, no meningismus. CHEST: no distress, lungs clear and equal throughout. No wheezing, rales, rhonchi. CARDIAC: regular rate and rhythm, no murmur, normal capillary refill, normal pulses. BACK: full range of motion, no CVA tenderness. EXTREMITIES: full range of motion of all extremities. No redness, no swelling. NEURO: alert and oriented 3, no focal deficits, full range of motion of all extremities. PYSCH: appropriate mood, affect. Patient is cooperative. SKIN: pink, warm, dry, scattered papular rash to the tops of the feet, toes, lower legs, volar forearms. No petechiae. No surrounding redness or drainage. Nontender to palpation. Course - Re-evaluation Re-evalutation: 08/03/17 01:39 Patient is nontoxic-appearing with stable vitals. Is here with complaints of itchy rash to his feet, legs, arms after pulling weeds. Rash is consistent with contact dermatitis. He is already tried topical cortisone, Benadryl, calamine lotion without relief. The patient does not have diabetes. There is no signs of infections. At this point the patient will be given prednisone will be placed on a prednisone taper and be given a prescription for Atarax. He was instructed to not take Benadryl while taking the Atarax. Follow-up if not better in the next week, sooner for worsening symptoms, high fever, difficulty breathing or swelling, or for any further concerns. The patient is noted to have elevated blood pressure during today's emergency department visit. The patient was informed of this finding. The patient was instructed that this may be related to pre-hypertension and requires further evaluation with a primary care provider. The patient has no hypertensive symptoms at this time. The patient's emergency department workup and current diagnosis were explained to the patient and or family. Follow-up instructions were provided. Medications if prescribed were discussed. Instructions for when to return to the emergency department including specific worrisome symptoms were discussed with the patient and/or family. - Vital Signs Vital signs: Temp Pulse Resp BP Pulse Ox 98.0 F 77 16 140/96 H 98 08/03/17 00:09 08/03/17 00:09 08/03/17 00:09 08/03/17 00:09 08/03/17 00:09 Discharge - Discharge Clinical Impression: Contact dermatitis Qualifiers: Contact dermatitis type: irritant Contact dermatitis trigger: non-food plants Qualified Code(s): L24.7 - Irritant contact dermatitis due to plants, except food Condition: Stable Disposition: HOME, SELF-CARE Instructions: Contact Dermatitis ([facility]) Additional Instructions: Take medications as prescribed. Do not take Benadryl at taking the Atarax. Keep rash clean and dry. Follow-up if not better in 1 week, sooner for worsening symptoms, high fever, difficulty breathing or swelling, or for any further concerns. Your blood pressure was elevated during today's visit. Have this rechecked with your doctor. Prescriptions: Hydroxyzine HCl [Atarax 25 mg Tablet] 1 - 2 tab PO QID #25 tablet Prednisone 5 mg PO ASDIR 18 Days tab.ds.pk Forms: Elevated Blood Pressure, Smoking Cessation Education Referrals: [facility] [Provider Group] - Follow up as needed
== END 2017-08-03 02:19 | disposition home or self-care (01) ==
LOC: ER 23:31
DX: L24.7 Irritant contact dermatitis due to plants, except food (principal); R03.0 Elevated blood-pressure reading, without diagnosis of hypertension; Z88.0 Allergy status to penicillin; Z88.1 Allergy status to other antibiotic agents
CPT/HCPCS: 99282; J7512

== ENCOUNTER 2017-10-08 00:02 | Emergency (ER) | payer SELFPAY ==
[2017-10-08 00:20] VITALS: BP 141/88
[2017-10-08] MEDS ORDERED: PREDNISONE 20 MG TABLET PO ONE (02:12)
[2017-10-08] MEDS ORDERED: FAMOTIDINE 20 MG TABLET PO ONE (02:12)
--- NOTE | 2017-10-08 02:18 | ER Document Report ---
ED Skin Rash/Insect Bite/Abscs - General Chief Complaint: Rash Stated Complaint: RASH Time Seen by Provider: 10/08/17 02:12 Mode of Arrival: Ambulatory Information source: Patient Notes: 26-year-old male presents to ED for complaint of a rash for about a week. He states he is allergic to poison elayne and has it on left hand and arm both legs abdomen chest face and neck. He states that the itching is getting worse and last time when he got this bad he came in and got some steroids and Vistaril and it helped it to relieve. I have instructed patient on weight to prevent breaking out with the poison elayne and treatments he can do at home for the poison elayne before he gets as bad as this has gotten. Patient is also given a list of local doctors to follow-up with. TRAVEL OUTSIDE OF THE [place] IN LAST 30 DAYS: No - HPI Patient complains to provider of: Skin rash/lesion Onset: Last week Onset/Duration: Gradual, Worse Quality of pain: No pain Severity: None Pain Level: Denies Skin Character: Rash Quality of rash: Itchy Identify cause: Yes Other exposure: Poison elayne Exacerbated by: Other - Overheating Relieved by: Denies - His last time it was relieved with steroids and Vistaril Similar symptoms previously: Yes Recently seen / treated by doctor: No - Related Data Allergies/Adverse Reactions: amoxicillin trihydrate [From Augmentin] Allergy (Verified 07/05/16 03:05) Potassium Clavulanate * [From Augmentin] Allergy (Verified 07/05/16 03:05) sulfamethoxazole [From Bactrim] Allergy (Verified 07/05/16 03:05) trimethoprim [From Bactrim] Allergy (Verified 07/05/16 03:05) Past Medical History - General Information source: Patient - Social History Smoking Status: Never Smoker Cigarette use (# per day): No Chew tobacco use (# tins/day): No Smoking Education Provided: No Frequency of alcohol use: None Drug Abuse: None Lives with: Family Family History: None, Hypertension Patient has suicidal ideation: No Patient has homicidal ideation: No - Past Medical History Cardiac Medical History: Reports: None Pulmonary Medical History: Reports: Hx Asthma - as a child, Hx Pneumonia EENT Medical History: Reports: None Neurological Medical History: Reports: None Endocrine Medical History: Reports: None Renal/ Medical History: Reports: None Malignancy Medical History: Reports None GI Medical History: Reports: None Musculoskeletal Medical History: Reports None Skin Medical History: Reports None Psychiatric Medical History: Reports: None Traumatic Medical History: Reports: None Infectious Medical History: Reports: None Past Surgical History: Reports: Hx Nose Surgery - septal hematoma, Hx Tonsillectomy, Other - 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 and GERD - Immunizations Immunizations up to date: No Hx Diphtheria, Pertussis, Tetanus Vaccination: Yes Review of Systems - Review of Systems Constitutional: No symptoms reported EENT: No symptoms reported Cardiovascular: No symptoms reported Respiratory: No symptoms reported Gastrointestinal: No symptoms reported Genitourinary: No symptoms reported Male Genitourinary: No symptoms reported Musculoskeletal: No symptoms reported Skin: Rash - Vesicular rash left arm and hand face neck chest abdomen and legs Hematologic/Lymphatic: No symptoms reported Neurological/Psychological: No symptoms reported -: Yes All other systems reviewed and negative Physical Exam - Vital signs Vitals: Temp Pulse Resp BP Pulse Ox 98.4 F 96 16 141/88 H 95 10/08/17 00:10/08/17 00:19 10/08/17 00:19 10/08/17 00:10/08/17 00:19 Interpretation: Normal - General General appearance: Appears well, Alert - HEENT Head: Normocephalic, Atraumatic Eyes: Normal Pupils: PERRL - Respiratory Respiratory status: No respiratory distress Chest status: Nontender Breath sounds: Normal Chest palpation: Normal - Cardiovascular Rhythm: Regular Heart sounds: Normal auscultation Murmur: No - Abdominal Inspection: Normal Distension: No distension Bowel sounds: Normal Tenderness: Nontender Organomegaly: No organomegaly - Back Back: Normal, Nontender - Extremities General upper extremity: Normal inspection, Nontender, Normal color, Normal ROM , Normal temperature General lower extremity: Normal inspection, Nontender, Normal color, Normal ROM , Normal temperature, Normal weight bearing. No: Iris's sign - Neurological Neuro grossly intact: Yes Cognition: Normal Orientation: AAOx4 [place] Coma Scale Eye Opening: Spontaneous [place] Coma Scale Verbal: Oriented [place] Coma Scale Motor: Obeys Commands [place] Coma Scale Total: 15 Speech: Normal Motor strength normal: LUE, RUE, LLE, RLE Sensory: Normal - Psychological Associated symptoms: Normal affect, Normal mood - Skin Skin Temperature: Warm Skin Moisture: Dry Skin Color: Normal Location of irregularity: Generalized Character of irregularity: Vesicular - Poison elayne Course - Re-evaluation Re-evalutation: 10/08/17 02:26 Patient treated with Pepcid and prednisone in the emergency room and discharged home with a prescription for prednisone and Pepcid and Vistaril. Patient was given instructions concerning soap and water when first contacted with poison elayne. He is also given instructions on avoiding heat sweating and hot showers which I will increase the itching and rash. Patient verbalized understanding of instructions and agreement with treatment plan. - Vital Signs Vital signs: Temp Pulse Resp BP Pulse Ox 98.4 F 96 16 141/88 H 95 10/08/17 00:19 10/08/17 00:19 10/08/17 00:19 10/08/17 00:19 10/08/17 00:19 Discharge - Discharge Clinical Impression: Poison elayne dermatitis Condition: Stable Disposition: HOME, SELF-CARE Instructions: Family Physicians / Practices Additional Instructions: Poison Elayne Poison elayne and poison oak can cause an itchy rash. This is called contact dermatitis. It's an allergy to an oil in the plant's leaves. The oil can be spread from clothing to skin, from pets to humans, or from one spot on the body to another. Washing thoroughly with soap immediately after exposure can prevent the rash. (Clothing should be washed as well.) If the oil is not removed, an itchy rash develops a few days after the exposure. Blisters may develop. Two to three weeks may be required for healing. Generally, treatment consists of: (1) an immediate thorough washing with soap to remove the oil, (2) application of a cortisone cream, and (3) antihistamines for itching. If the reaction is particularly severe, oral cortisone medicine may be required. If there are oozing areas, these can be soaked in epsom salts or Farooq's solution. Call the doctor if the rash worsens despite treatment, or if signs of infection occur such as spreading redness, red streaks, swollen glands, swelling , or fever. STEROID MEDICATION: You have been given a medicine of the cortisone/steroid class. This medication is used to control inflammation or allergy. It is usually only given for a short period of time, until the acute process subsides. There are usually no side effects from short-term use of cortisone-like medications. Some persons feel an increased sense of well-being and are not sleepy at bedtime. Long-term use of cortisone medications is best avoided, unless required for a severe condition. If your condition does not remit, or relapses after the course of corticosteroid medication, you should consult your physician. ACID-SUPPRESSING MEDICATION: You have a prescription for medicine which reduces the stomach's secretion of acid. Examples include Zantac, Tagament, and Pepcid. These drugs are often used to allow healing of ulcers or esophagitis. They may be needed to prevent recurrence of ulcers in some patients, or to prevent damage from acid reflux in the esophagus. Take all medication as prescribed, even after the pain is gone. Regular antacids may be added as needed if you have symptoms while taking this medicine. These medications sometimes are prescribed for allergic reactions because they have anti-histaminic effects and relieve the rash and itching of the reaction. There are usually no side effects from this medication. But, in rare cases and particularly in the elderly, serious problems can occur. Contact your doctor if there is fever, rash, hallucinations, confusion, or unusual bruising. Contact your doctor at once if you develop lightheadedness, black or bloody stool, or bloody vomitus. ANTIHISTAMINES: An antihistamine has been given and/or prescribed to control your symptoms. Antihistamines are used for many reasons, including itching, watering eyes, runny nose, allergic swelling, hives, and insect stings. Antihistamines may cause drowsiness, especially with the first dose. Do not operate machinery or drive while under the effects of the medication. Other common side effects include dry mouth and eyes. In older persons, antihistamines can occasionally cause urinary retention, constipation, and trouble focusing the eyes. Do not combine the medication with alcohol, or with any other medication without talking to your doctor. FOLLOW-UP CARE: If you have been referred to a physician for follow-up care, call the physician s office for an appointment as you were instructed or within the next two days. If you experience worsening or a significant change in your symptoms, notify the physician immediately or return to the Emergency Department at any time for re-evaluation. Prescriptions: Hydroxyzine Pamoate 50 mg PO Q6HP PRN #14 capsule PRN Reason: Famotidine [Pepcid 20 mg Tablet] 20 mg PO BID #12 tablet Prednisone [Sterapred Ds] 1 pkg PO ASDIR PRN 12 Days tab.ds.pk PRN Reason: Forms: Elevated Blood Pressure, Return to Work
== END 2017-10-08 02:38 | disposition home or self-care (01) ==
LOC: ER 00:02
DX: L23.7 Allergic contact dermatitis due to plants, except food (principal); Z88.0 Allergy status to penicillin; Z88.1 Allergy status to other antibiotic agents
CPT/HCPCS: 99283; J7512

== ENCOUNTER 2018-03-11 18:46 | Emergency (ER) | payer SELFPAY ==
[2018-03-11] MEDS ORDERED: PREDNISONE 20 MG TABLET PO ONE (19:21)
--- NOTE | 2018-03-11 19:24 | ER Document Report ---
ED Medical Screen (RME) - General Chief Complaint: Shortness Of Breath Stated Complaint: TROUBLE BREATHING/VOMITING/SORE THROAT Time Seen by Provider: 03/11/18 19:16 Notes: 27-year-old male patient with past history of tracheomalacia and multiple surgeries and tracheostomies and reconstructions reports 2-day history of sore throat, subjective difficulty breathing, subglottic and substernal chest area feels restricted when he breathes in. Has vomited x4. Has had some abdominal pain with this. Throat looks like a viral pharyngitis on exam. Lungs are clear to auscultation. He has a chronically hoarse voice that sounds like laryngitis which is unchanged from baseline. I have greeted and performed a rapid initial assessment of this patient. A comprehensive ED assessment and evaluation of the patient, analysis of test results and completion of the medical decision making process will be conducted by additional ED providers. TRAVEL OUTSIDE OF THE [place] IN LAST 30 DAYS: No - Related Data Allergies/Adverse Reactions: amoxicillin trihydrate [From Augmentin] Allergy (Verified 07/05/16 03:05) Potassium Clavulanate * [From Augmentin] Allergy (Verified 07/05/16 03:05) sulfamethoxazole [From Bactrim] Allergy (Verified 07/05/16 03:05) trimethoprim [From Bactrim] Allergy (Verified 07/05/16 03:05) Past Medical History - Social History Chew tobacco use (# tins/day): No Drug Abuse: None Pulmonary Medical History: Reports: Hx Asthma - as a child, Hx Pneumonia Renal/ Medical History: Denies: Hx Peritoneal Dialysis Past Surgical History: Reports: Hx Nose Surgery - septal hematoma, Hx Tons illectomy, Other - 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
--- NOTE | 2018-03-11 19:40 | RADIOLOGY REPORT (SQ) ---
EXAM DESCRIPTION: SOFT TISSUE NECK COMPLETED DATE/TIME: 03/11/2018 7:33 pm REASON FOR STUDY: Sore throat, breathing difficulty, tracheomalacia COMPARISON: None. NUMBER OF VIEWS: Two views. TECHNIQUE: AP and lateral radiographic image of the soft tissues of the neck. LIMITATIONS: None. FINDINGS: EPIGLOTTIS: Normal. Contour normal. Aryepiglottic folds normal. PREVERTEBRAL SOFT TISSUES: Normal. No soft tissue swelling. SUBGLOTTIC AREA: Normal. No narrowing. RETROPHARYNGEAL SPACE: Normal. No soft tissue masses. BONES: No significant findings. LUNG APICES: Normal. OTHER: No radiopaque foreign body. No other significant finding. IMPRESSION: NEGATIVE STUDY OF THE SOFT TISSUES OF THE NECK. TECHNICAL DOCUMENTATION: JOB ID: [id number] [employer]- All Rights Reserved Reading location - IP/workstation name: [email or web address]
--- NOTE | 2018-03-11 19:41 | RADIOLOGY REPORT (SQ) ---
EXAM DESCRIPTION: CHEST 2 VIEWS COMPLETED DATE/TIME: 03/11/2018 7:33 pm REASON FOR STUDY: Cough, short of breath, tracheomalacia COMPARISON: 06/25/2017 EXAM PARAMETERS: NUMBER OF VIEWS: two views TECHNIQUE: Digital Frontal and Lateral radiographic views of the chest acquired. RADIATION DOSE: NA LIMITATIONS: none FINDINGS: LUNGS AND PLEURA: No opacities, masses or pneumothorax. No pleural effusion. MEDIASTINUM AND HILAR STRUCTURES: No masses or contour abnormalities. HEART AND VASCULAR STRUCTURES: Heart normal size. No evidence for failure. BONES: Chronic rib deformities. HARDWARE: None in the chest. OTHER: No other significant finding. IMPRESSION: NO ACUTE RADIOGRAPHIC FINDING IN THE CHEST. TECHNICAL DOCUMENTATION: JOB ID: [id number] [employer]- All Rights Reserved Reading location - IP/workstation name: [email or web address]
--- NOTE | 2018-03-11 20:42 | ER Document Report ---
ED General - General TRAVEL OUTSIDE OF THE [place] IN LAST 30 DAYS: No <BETTY CHEN - Last Filed: 03/12/18 00:27> <YESICA PINA - Last Filed: 03/12/18 10:13> - General Chief Complaint: Shortness Of Breath Stated Complaint: TROUBLE BREATHING/VOMITING/SORE THROAT Time Seen by Provider: 03/11/18 19:16 Notes: Patient is a 27-year-old male presenting to the emergency department complaining of shortness of breath inevitably causing him to be dizzy. Patient states he has a history of tracheomalacia and subglottic stenosis. States he has had multiple reconstructive surgeries to include surgery on his vocal cords. Patient states he has had a sore throat for the last 2 days but is denying a fever or upper respiratory symptoms. Patient states he vomited x4 today denying blood but is complaining of nausea. Patient denies abdominal pain, diarrhea, dysuria, chest pain. Patient states he has not had any "issues with my throat" in over 10 years. States he has not seen a doctor in over 4 years. Patient has a hoarse voice which states is his baseline, patient states that has not changed over the last 2 days with these symptoms. Past medical history: Tracheomalacia, subglottic stenosis, GERD Medications: None Allergies: Bactrim, Augmentin, sulfa (BETTY CHEN) - Related Data Allergies/Adverse Reactions: amoxicillin trihydrate [From Augmentin] Allergy (Verified 07/05/16 03:05) Potassium Clavulanate * [From Augmentin] Allergy (Verified 07/05/16 03:05) sulfamethoxazole [From Bactrim] Allergy (Verified 07/05/16 03:05) trimethoprim [From Bactrim] Allergy (Verified 07/05/16 03:05) Past Medical History - General Information source: Patient - Social History Smoking Status: Never Smoker Chew tobacco use (# tins/day): No Drug Abuse: None Family History: None, Hypertension Patient has suicidal ideation: No Patient has homicidal ideation: No Pulmonary Medical History: Reports: Hx Asthma - as a child, Hx Pneumonia Renal/ Medical History: Denies: Hx Peritoneal Dialysis Past Surgical History: Reports: Hx Nose Surgery - septal hematoma, Hx Tonsillectomy, Other - 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 and GERD - Immunizations Immunizations up to date: No Hx Diphtheria, Pertussis, Tetanus Vaccination: Yes <AVRIL CHENBAKARIREGI - Last Filed: 03/12/18 00:27> Review of Systems - Review of Systems Constitutional: See HPI EENT: See HPI Cardiovascular: See HPI Respiratory: See HPI Gastrointestinal: See HPI Genitourinary: No symptoms reported Male Genitourinary: No symptoms reported Musculoskeletal: No symptoms reported Skin: No symptoms reported Hematologic/Lymphatic: No symptoms reported Neurological/Psychological: See HPI - Dizziness <AVRIL CHENBAKARIREGI - Last Filed: 03/12/18 00:27> Physical Exam <AVRIL CHENBAKARIREGI - Last Filed: 03/12/18 00:27> - Vital signs Vitals: Temp Pulse Resp BP Pulse Ox 97.9 F 80 18 134/100 H 100 03/11/18 19:09 03/11/18 19:09 03/11/18 19:09 03/11/18 19:09 03/11/18 19:09 - Notes Notes: GENERAL: Alert, interacts well. No acute distress. Hoarse voice noted upon examination, patient states is his baseline. Patient is non-stridulous HEAD: Normocephalic, atraumatic. EYES: Pupils equal, round, and reactive to light. Extraocular movements intact. ENT: Oral mucosa moist, tongue midline. Nares patent, no nasal septal hematoma, TM's intact. Nonerythematous, nonbulging NECK: Full range of motion. Supple. Trachea midline. LUNGS: Clear to auscultation bilaterally, no wheezes, rales, or rhonchi. No respiratory distress. HEART: Regular rate and rhythm. No murmur ABDOMEN: Soft, non-tender. Non-distended. Bowel sounds present in all 4 qu adrants. EXTREMITIES: Moves all 4 extremities spontaneously. No edema, normal radial and dorsalis pedis pulses bilaterally. No cyanosis. BACK: no cervical, thoracic, lumbar midline tenderness. No saddle anesthesia, normal distal neurovascular exam. NEUROLOGICAL: Alert and oriented x3. Normal speech. [cranial nerves II through XII grossly intact]. PSYCH: Normal affect, normal mood. SKIN: Warm, dry, normal turgor. No rashes or lesions noted. (BETTY CHEN) Course - Laboratory Result Diagrams: 03/11/18 20:35 03/11/18 20:35 <BETTY CHEN - Last Filed: 03/12/18 00:27> - Laboratory Result Diagrams: 03/11/18 20:35 03/11/18 20:35 <YESICA PINA Paulina - Last Filed: 03/12/18 10:13> - Re-evaluation Re-evalutation: Paged and spoke with Dr. Morgan ENT at [facility] who states he does not think the patient needs to be emergently brought to their facility. Discussed talking to the hospitalist at [facility] for admission for observation and administration of dexamethasone every 6-8 hours and to start the patient on clindamycin for potential pharyngitis. Patient remains in no respiratory distress, is non-stridulous, 100% SPO2 on room air. 03/11/18 22:59 Discussed case with hospitalist Dr. Ramírez who is not willing to admit the patient due to CT imaging noting "worrisome for airway compromise." I have re- paged ENT at [facility] for patient transfer at this time. 03/12/18 00:27 Transfer center states ENT doctor Eddie requests the patient be transferred to their facility ED to ED. Then discussed the case with Dr. Miah Santizo in the emergency department who will accept the patient ED to ED. Dr. Morgan continues to suggest dexamethasone every 8 hours and clindamycin for pharyngitis. Orders have been placed. Patient continues to be without stridor, 100% SPO2 on room air in no obvious distress. Awaiting transport. (BETTY CHEN) 03/12/18 09:10 Patient remains stable at this time. He is ambulating back and forth to the restroom. He has no stridor, respiratory rate is 18 and he is maintaining O2 saturation of 100% on room air. He is currently awaiting transport to [facility]. I did call and speak with our surgical list, Dr. Paredes who states that the patient would not be appropriate for admission here due to concern for airway compromise and given the patient's history of recurrent surgeries, if airway intervention was necessary we do not have the appropriate equipment to handle his case. 03/12/18 10:12 [facility] is at bedside to transfer patient. I went in and spoke with the patient he is reporting pain 2/5, he declines the need for any pain medication as he states this is his baseline. Patient is stable for transport at this time. (YESICA PINA) - Vital Signs Vital signs: Temp Pulse Resp BP Pulse Ox 98.1 F 96 18 132/91 H 96 03/12/18 10:02 03/12/18 10:02 03/12/18 10:02 03/12/18 10:02 03/12/18 10:02 - Laboratory Laboratory results interpreted by me: 03/11/18 03/11/18 20:35 20:35 WBC 11.7 H Hgb 17.1 H Total Bilirubin 1.9 H Discharge - Discharge Admitting Provider: Dr. Miah Santizo ED Doctor <BETTY CHEN - Last Filed: 03/12/18 00:27> <YESICA PINA - Last Filed: 03/12/18 10:13> - Discharge Clinical Impression: Supraglottic stenosis Condition: Good Disposition: [place]
[2018-03-11 20:54] LABS: ABSOLUTE EOSINOPHILS # (AUTO) 0.1 10^3/uL (0.0-0.6); ABSOLUTE LYMPHOCYTES (AUTO) 3.8 10^3/uL (0.5-4.7); ABSOLUTE MONOCYTES (AUTO) 1.1 10^3/uL (0.1-1.4); ABSOLUTE NEUT (AUTO) 6.5 10^3/uL (1.7-8.2); BASOPHILS % (AUTO) 0.3 % (0-2); EOSINOPHILS % (AUTO) 0.7 % (0-6); HEMOGLOBIN 17.1 g/dL (13.5-17.0); MEAN CORPUSCULAR HEMOGLOBIN 30.9 pg (27.0-33.4); MEAN CORPUSCULAR HGB CONC 35.6 g/dL (32.0-36.0); MEAN CORPUSCULAR VOLUME 87 fl (80-97); MONOCYTES % (AUTO) 9.8 % (3-13); PLATELET COUNT 320 10^3/uL (150-450); RED BLOOD COUNT 5.52 10^6/uL (4.35-5.55); RED CELL DISTRIBUTION WIDTH 12.6 % (11.5-14.0); SEGMENTED NEUTROPHILS % (AUTO) 56.2 % (42-78); TOTAL CELLS COUNTED % (AUTO) 100 %; WHITE BLOOD COUNT 11.7 10^3/uL (4.0-10.5)
--- NOTE | 2018-03-11 21:09 | RADIOLOGY REPORT (SQ) ---
EXAM DESCRIPTION: CT SOFT TISSUE NECK WITH COMPLETED DATE/TIME: 03/11/2018 8:46 pm REASON FOR STUDY: tracheomalasia SOB COMPARISON: None. TECHNIQUE: Post IV contrasted scanning from skull base through lung apices with review of bone, soft tissue and lung windows. Reconstructed coronal and sagittal MPR images reviewed. All images stored on PACS. All CT scanners at this facility use dose modulation, iterative reconstruction, and/or weight based d osing when appropriate to reduce radiation dose to as low as reasonably achievable (ALARA). [facility]: Dose Right [facility]: CareDose [facility]: Dose Right [facility]: Teradose 4D [facility]: Root4 CONTRAST TYPE AND DOSE: contrast/concentration: Isovue 350.00 mg/ml; Total Contrast Delivered: 75.0 ml; Total Saline Delivered: 41.9 ml RENAL FUNCTION: None required. The patient is less than 50 years old. RADIATION DOSE: CT Rad equipment meets quality standard of care and radiation dose reduction techniq ues were employed. CTDIvol: 16.1 mGy. DLP: 557 mGy-cm. . LIMITATIONS: None. FINDINGS: SKULL BASE: Intact. MAJOR SALIVARY GLANDS: No solid or cystic masses. No inflammatory changes. LYMPHADENOPATHY: No adenopathy. MUCOSAL MASSES OR ASYMMETRY: No mucosal masses or asymmetry. LARYNX/CORDS: Symmetric supraglottic glottic airway narrowing. No obvious mass. VASCULAR STRUCTURES: The major vessels are patent. LUNG APICES: Clear. BONES: Intact. THYROID: Normal size. No masses. PARANASAL SINUSES: Clear. OTHER: No other significant finding. IMPRESSION: Symmetric Supraglottic and glottic airway narrowing without obvious mass. Worrisome for airway compromise TECHNICAL DOCUMENTATION: JOB ID: [id number] Quality ID # [id number]: Final reports with documentation of one or more dose reduction techniques (e.g., Au tomated exposure control, adjustment of the mA and/or kV according to patient size, use of iterative reconstruction technique) 2010 [employer]- All Rights Reserved Reading location - IP/workstation name: [email or web address]
[2018-03-11 21:11] LABS: ALANINE AMINOTRANSFERASE 53 U/L (21-72); ALBUMIN 4.4 g/dL (3.5-5.0); ALKALINE PHOSPHATASE 81 U/L (38-126); ANION GAP 9 (5-19); ASPARTATE AMINO TRANSFERASE 40 U/L (17-59); BILIRUBIN,DIRECT 0.3 mg/dL (0.0-0.4); BILIRUBIN,TOTAL 1.9 mg/dL (0.2-1.3); BLOOD UREA NITROGEN 17 mg/dL (7-20); CALCIUM 9.4 mg/dL (8.4-10.2); CARBON DIOXIDE 28 mmol/L (22-30); CHLORIDE 103 mmol/L (98-107); GLUCOSE 107 mg/dL (75-110); SODIUM 140.1 mmol/L (137-145); TOTAL PROTEIN 6.5 g/dL (6.3-8.2)
[2018-03-11] MEDS ORDERED: DEXAMETHASONE SOD PHOS INJ 10 MG/1 ML VIAL IV ONE (22:32)
[2018-03-11] MEDS ORDERED: ONDANSETRON HCL INJ/PF 4 MG/2 ML SDV IV ONE (23:02)
[2018-03-11] MEDS ORDERED: CLINDAMYCIN HCL 150 MG CAPSULE PO ONE (23:04)
[2018-03-12] MEDS ORDERED: DEXAMETHASONE SOD PHOS INJ 10 MG/1 ML VIAL IV ONE (07:00)
[2018-03-12] MEDS ORDERED: CLINDAMYCIN HCL 150 MG CAPSULE PO ONE (07:00)
[2018-03-12] MEDS ORDERED: ONDANSETRON HCL INJ/PF 4 MG/2 ML SDV IV ONE (07:27)
[2018-03-12 10:03] VITALS: BP 132/91
== END 2018-03-12 10:15 | disposition short-term general hospital (02) ==
LOC: ER 18:46
DX: J38.6 Stenosis of larynx (principal); J39.8 Other specified diseases of upper respiratory tract; R06.02 Shortness of breath; R11.10 Vomiting, unspecified; J02.9 Acute pharyngitis, unspecified; R42 Dizziness and giddiness; J45.909 Unspecified asthma, uncomplicated
CPT/HCPCS: 96376; 99285; 96374; 96375; 36415; 87070; 87880; 85025; 80053; 71046; 70360; 70491; J7512; J2405 ×2; J1100 ×2

== ENCOUNTER 2018-06-03 03:28 | Emergency (ER) | payer SELFPAY ==
[2018-06-03 03:42] VITALS: BP 140/89
== END 2018-06-03 05:10 | disposition left against medical advice (07) ==
LOC: ER 03:28
DX: Z53.21 Procedure and treatment not carried out due to patient leaving prior to being seen by health care provider (principal)
CPT/HCPCS: 99281

== ENCOUNTER 2018-08-01 08:55 | Day surgery (SDC) | payer MEDICAID ==
[~2018-08-01 08:55] MED LIST: PROPOFOL INJ 200 MG/20 ML VIAL IV ONE
[2018-08-01 10:15] VITALS: BP 131/77
--- NOTE | 2018-08-01 13:15 | Operative Report ---
Operative Report DATE OF SURGERY: 08/01/18 Operative Report: The risks benefits and alternatives of the procedure explained to the patient in detail and informed consent is obtained.A GIF Olympus video scope was inserted into the patient's mouth and hypopharynx, the esophagus is identified intubated and insufflated ,the scope was then advanced through the esophagus stomach and duodenum, retroflexion maneuver is done ,the esophagus stomach and first and second portions of the duodenum examined. PREOPERATIVE DIAGNOSIS: Dysphagia, gastroesophageal reflux disease POSTOPERATIVE DIAGNOSIS: Gastritis status post biopsy rule out Helicobacter pylori. Esophagitis noted. Hiatal hernia OPERATION: EGD with biopsy SURGEON: JAEL SALCIDO ANESTHESIA: LMAC TISSUE REMOVED OR ALTERED: As noted above. COMPLICATIONS: None. ESTIMATED BLOOD LOSS: None. INTRAOPERATIVE FINDINGS: As noted above. PROCEDURE: Patient tolerated the procedure well. No immediate postprocedure complications are noted. Patient is discharged in good condition. Discharge date 08/01/2018. Discharge diet: Regular. Discharge activity: Regular. 2 to 3-week follow-up to discuss findings. Patient is instructed to call the office or proceed to the emergency room should there be any further problems or questions. I will wait to pathology.
== END 2018-08-01 10:22 | disposition home or self-care (01) ==
LOC: END 08:55
PROVIDERS: ATTEND Internal Medicine Gastroenterology
DX: K29.50 Unspecified chronic gastritis without bleeding (principal); K20.9 Esophagitis, unspecified; K44.9 Diaphragmatic hernia without obstruction or gangrene; Z79.899 Other long term (current) drug therapy; Z79.1 Long term (current) use of non-steroidal anti-inflammatories (NSAID)
CPT/HCPCS: 43239; 88305 ×2; J2704

== ENCOUNTER 2018-08-21 22:05 | Emergency (ER) | payer MEDICAID ==
--- NOTE | 2018-08-21 22:52 | RADIOLOGY REPORT (SQ) ---
EXAM DESCRIPTION: XR ANKLE 3 OR MORE VIEWS COMPLETED DATE/TME: 08/21/2018 22:11 CLINICAL HISTORY: 27 years, Male, twisted ankle in hole COMPARISON: None. NUMBER OF VIEWS: 3 TECHNIQUE: 3 view right ankle LIMITATIONS: None. FINDINGS: Mild lateral soft tissue swelling. Negative for acute fracture or dislocation. There is a well-corticated 1.6 mm ossific density near the medial malleolus which could reflect sequelae of old trauma. IMPRESSION: Lateral soft tissue swelling. No acute fracture or dislocation. Tiny old avulsion injury near the medial malleolus copyright 2010 [employer]- All Rights Reserved
[2018-08-22] MEDS ORDERED: IBUPROFEN 600 MG TABLET PO ONE (00:44)
--- NOTE | 2018-08-22 00:49 | ER Document Report ---
HPI - HPI Time Seen by Provider: 08/22/18 00:44 Pain Level: 4 Notes: Patient is a 19-year-old male presented to the emergency department chief complaint of right ankle injury. Patient reports he missed stepped and stepped into a hole a few hours prior to arrival. He reports he is able to bear weight on this however it does cause him some discomfort. Past Medical History - General Information source: Patient - Social History Smoking Status: Never Smoker Frequency of alcohol use: None Drug Abuse: None Family History: None, Hypertension - Past Medical History Cardiac Medical History: Reports: Hx Hypertension Denies: Hx Coronary Artery Disease, Hx Heart Attack Pulmonary Medical History: Reports: Hx Asthma - as a child, Hx Pneumonia Denies: Hx Bronchitis, Hx COPD Neurological Medical History: Denies: Hx Cerebrovascular Accident, Hx Seizures Renal/ Medical History: Denies: Hx Peritoneal Dialysis Musculoskeletal Medical History: Denies Hx Arthritis Past Surgical History: Reports: Hx Nose Surgery - septal hematoma, Hx Tonsillectomy, Other - 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 and GERD - Immunizations Immunizations up to date: No Hx Diphtheria, Pertussis, Tetanus Vaccination: Yes Vertical Provider Document - CONSTITUTIONAL Notes: PHYSICAL EXAMINATION: GENERAL: Well-appearing, well-nourished and in no acute distress. HEAD: Atraumatic, normocephalic. EYES: Pupils equal round extraocular movements intact, conjunctiva are normal. ENT: Nares patent NECK: Normal range of motion LUNGS: No respiratory distress Musculoskeletal: Normal range of motion, swelling and ecchymosis noted to lateral right ankle. Cap refill less than 3 seconds, strong dorsalis pedis pulse. Normal motor and sensation distal to area of injury. NEUROLOGICAL: Normal speech. PSYCH: Normal mood, normal affect. SKIN: Warm, Dry, normal turgor, no rashes or lesions noted. - INFECTION CONTROL TRAVEL OUTSIDE OF THE [place] IN LAST 30 DAYS: No Course - Re-evaluation Re-evalutation: X-rays negative for any acute fracture or dislocation. Will treat patient for ankle sprain. Will place an ankle stirrup splint placed on crutches and instructed to ice, elevate and use ibuprofen as outlined in the discharge instructions. - Vital Signs Vital signs: Temp Pulse Resp BP Pulse Ox 98.1 F 93 20 129/97 H 95 08/21/18 22:39 08/21/18 22:39 08/21/18 22:39 08/21/18 22:39 08/21/18 22:39 Procedures - Immobilization Right ankle Pre-Proc Neuro Vasc Exam: Normal Immobilizer type: Ankle stirrup, Crutches Performed by: PCT Post-Proc Neuro Vasc Exam: Normal Alignment checked and good: Yes Discharge - Discharge Clinical Impression: Right ankle sprain Qualifiers: Encounter type: initial encounter Involved ligament of ankle: unspecified ligament Qualified Code(s): S93.401A - Sprain of unspecified ligament of right ankle, initial encounter Condition: Stable Disposition: HOME, SELF-CARE Additional Instructions: SPRAINED ANKLE: Your sprained ankle results from stretching or tearing of the ligaments which support the ankle. This usually results from twisting the foot inward and under. The ligaments will require time and protection in order to heal properly. Many ankle sprains are quite disabling, and should be taken seriously. The usual treatment for an ankle sprain is cold packs; protection with tape, splints, or wraps; elevation; and staying off the ankle for at least a day. As the ankle improves, you can walk IF it's not painful to bear weight. Sports are best postponed until healing is complete. More serious sprains usually require strengthening exercises after early healing. Your physician has assessed the seriousness of the ligament injury to your ankle. However, the treatment may change, depending on how your ankle progresses. If further exams were recommended, it is important that you follow through. Call the doctor if your foot becomes numb, painful, or severely swollen. ANKLE STIRRUP SPLINT: You are to use an ankle brace called a stirrup splint. This type of brace allows you to place greater stresses on the ankle without risk of re-injury, and is often used for more severe ankle injuries such as avulsion fractures and ligament ruptures. The splint can be worn over a sock or tape. For proper support, wear the splint with a shoe over it. It's important that the splint fit properly. Adjust the heel tension, if needed. If your splint has air bladders, peel back the bottom of each air bladder, then move the Velcro attachment of the heel strap up or down. Air bladder pressure can be adjusted by pulling up the valve at the top, threading the air tube down into the main bladder, then blowing air into the bladder or squeezing it out. The two sides of the stirrup can be moved forward or back on your ankle by changing the attachment of the main straps. If you are unable to use the ankle comfortably in the splint, return for re-evaluation. USE OF CRUTCHES: The doctor has recommended that you not bear weight at this time. You will need to use crutches. Adjust the crutches so the tops come to about two inches under the armpit while you are standing upright. Use your hands -- not your armpits -- to support your weight. To get into a chair, support yourself with one crutch on the injured side. Hold the chair with the other hand, then lower yourself while putting all your weight on the good leg. Going up stairs is `good leg up, step up, then bring up crutches and bad leg.' Down stairs is `bad leg and crutches down, then bring good leg down.' If you develop numbness or swelling in an arm or hand, you are using the crutches incorrectly. Return if you are having any problems with the crutches. ICE & ELEVATION: Apply ice packs frequently against the painful area. Many different schedu les are recommended, such as "20 minutes on, 20 minutes off" or "one hour ice, two hours rest." If you need to work, you may need to go longer between ice treatments. You should plan to have the area ice packed AT LEAST one-fourth of the time. The ice should be applied over the wrap, tape, or splint, or over a layer of cloth -- not directly against the skin. Some ice bags have a built-in cloth and can be put directly on the skin. Your injured part should be elevated as much as possible over the next 48 hours. Try to keep the injury above the level of the heart. Avoid use of the i njured area. Elevation and rest will decrease the swelling. USE OF [id number] IBUPROFEN: Ibuprofen (Advil, Nuprin, Medipren, Motrin IB) is a medication for fever and pain control. In addition, it has anti- inflammatory effects which may be beneficial, especially in the treatment of injuries. It's best to take ibuprofen with food. Persons with ulcer disease or allergy to aspirin should notify their physician of this before taking ibuprofen. Ibuprofen can be given every four to six hours, for a total of four doses daily. Age Pain or fever dose Antiinflammatory dose 6-8 yr 200 mg (1 tab) 200 mg (1 tab) 9-11 yr 200 mg (1 tab) 200-400 mg (1-2 tab) 11-14 yr 200-400 mg (1-2 tab) 400 mg (2 tab) 15-adult 400 mg (2 tab) 600 mg (3 tab) FOLLOW-UP CARE: If you have been referred to a physician for follow-up care, call the [facility] office for an appointment as you were instructed or within the next two days. If you experience worsening or a significant change in your symptoms, notify the physician immediately or return to the Emergency Department at any time for re-evaluation. As discussed please take ibuprofen 600 mg every 6 hours for pain and inflammation. Ice and elevate over the next several days. Keep the ankle splint in place and use the crutches. You may return to weightbearing once it does not cause significant pain. Please follow-up with your primary care provider in 2 weeks for a recheck. Prescriptions: Crutch 1 each [facility] DAILY #1 each Forms: Return to Work Referrals: ANDRIA IRVIN DO [Primary Care Provider] - Follow up as needed
[2018-08-22 01:06] VITALS: BP 132/97
== END 2018-08-22 01:18 | disposition home or self-care (01) ==
LOC: ER 22:05
DX: S93.401A Sprain of unspecified ligament of right ankle, initial encounter (principal); X50.0XXA Overexertion from strenuous movement or load, initial encounter; I10 Essential (primary) hypertension
CPT/HCPCS: 99283; 73610; L1902; J3490

== ENCOUNTER 2019-05-06 00:44 | Emergency (ER) | payer SELFPAY ==
[2019-05-06 02:20] LABS: ABSOLUTE EOSINOPHILS # (AUTO) 0.1 10^3/uL (0.0-0.6); ABSOLUTE MONOCYTES (AUTO) 0.6 10^3/uL (0.1-1.4); ABSOLUTE NEUT (AUTO) 4.2 10^3/uL (1.7-8.2); BASOPHILS % (AUTO) 0.4 % (0-2); EOSINOPHILS % (AUTO) 1.1 % (0-6); HEMATOCRIT 47.4 % (37.9-51.0); HEMOGLOBIN 16.9 g/dL (13.5-17.0); LYMPHOCYTES % (AUTO) 44.2 % (13-45); MEAN CORPUSCULAR HEMOGLOBIN 31.2 pg (27.0-33.4); MEAN CORPUSCULAR HGB CONC 35.7 g/dL (32.0-36.0); MEAN CORPUSCULAR VOLUME 87 fl (80-97); MONOCYTES % (AUTO) 7.2 % (3-13); PLATELET COUNT 298 10^3/uL (150-450); RED BLOOD COUNT 5.44 10^6/uL (4.35-5.55); RED CELL DISTRIBUTION WIDTH 12.1 % (11.5-14.0); SEGMENTED NEUTROPHILS % (AUTO) 47.1 % (42-78); TOTAL CELLS COUNTED % (AUTO) 100 %
[2019-05-06 02:29] LABS: APPEARANCE,URINE CLEAR; BILIRUBIN,URINE NEGATIVE (NEGATIVE); COLOR,URINE YELLOW; GLUCOSE, URINE NEGATIVE (NEGATIVE); KETONES,URINE NEGATIVE (NEGATIVE); LEUKOCYTE ESTERASE,URINE NEGATIVE (NEGATIVE); NITRITE,URINE NEGATIVE (NEGATIVE); PROTEIN,URINE NEGATIVE (NEGATIVE); URINE SPECIFIC GRAVITY 1.017; UROBILINOGEN,URINE NEGATIVE mg/dL (<2.0)
--- NOTE | 2019-05-06 02:39 | RADIOLOGY REPORT (SQ) ---
EXAM DESCRIPTION: XR CHEST 2 VIEWS COMPLETED DATE/TME: 05/06/2019 00:00 CLINICAL HISTORY: 28 years Male, sob COMPARISON: None. NUMBER OF VIEWS/TECHNIQUE: 2, Frontal, Lateral FINDINGS: Adequate lung volume, clear parenchyma, normal cardiac silhouette, and intact bony thorax. 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 IMPRESSION: No acute cardiopulmonary findings.
[2019-05-06 02:46] LABS: ALBUMIN 4.5 g/dL (3.5-5.0); ALKALINE PHOSPHATASE 87 U/L (38-126); ANION GAP 7 (5-19); ASPARTATE AMINO TRANSFERASE 28 U/L (17-59); BLOOD UREA NITROGEN 17 mg/dL (7-20); CALCIUM 9.9 mg/dL (8.4-10.2); CARBON DIOXIDE 30 mmol/L (22-30); CHLORIDE 103 mmol/L (98-107); GLUCOSE 70 mg/dL (75-110); POTASSIUM 4.5 mmol/L (3.6-5.0); TOTAL PROTEIN 7.1 g/dL (6.3-8.2)
--- NOTE | 2019-05-06 05:06 | ER Document Report ---
ED Respiratory Problem - General Chief Complaint: Shortness Of Breath Stated Complaint: CHEST PAIN/COUGH/SHORTNESS OF BREATH/FATIGUE Time Seen by Provider: 05/06/19 05:05 Primary Care Provider: ANDRIA IRVIN DO [Primary Care Provider] - Follow up as needed Notes: CHIEF COMPLAINT: Cough and wheezing for 1 week HPI: 28-year-old male who does not smoke presenting to the emergency department for evaluation of cough with wheezing for 1 week without fever. Some occasional shortness of breath with coughing episodes. States he had a 1 minute episode of left chest discomfort today after a coughing episode prompting him to come into the emergency department. No chest discomfort at this time. ROS: See HPI - all other systems were reviewed and are otherwise negative Constitutional: no fever Eyes: no drainage, no blurred vision ENT: no runny nose, no sore throat Cardiovascular: Positive chest pain Resp: no SOB, positive cough GI: no vomiting, no diarrhea, no abdominal pain : no dysuria Integumentary: no rash Allergy: no hives Musculoskeletal: no extremity pain or swelling Neurological: no numbness/tingling, no weakness MEDICATIONS: I agree with the patient medications as charted by the RN. ALLERGIES: I agree with the allergies as charted by the RN. PAST MEDICAL HISTORY/PAST SURGICAL HISTORY: Reviewed and agree as charted by RN. SOCIAL HISTORY: Reviewed and agree as charted by RN. FAMILY HISTORY: No significant familial comorbid conditions directly related to patient complaint EXAM: Reviewed vital signs as charted by RN. CONSTITUTIONAL: Alert and oriented and responds appropriately to questions. Well-appearing; well-nourished, no acute distress HEAD: Normocephalic; atraumatic EYES: PERRL; Conjunctivae clear, sclerae non-icteric ENT: normal nose; no rhinorrhea; moist mucous membranes; pharynx without lesions noted, no uvula edema or deviation, no tonsillar hypertrophy, phonation normal NECK: Supple without meningismus; non-tender; no cervical lymphadenopathy, no masses CARD: RRR; no murmurs, no clicks, no rubs, no gallops; symmetric distal pulses RESP: Normal chest excursion without splinting or tachypnea; breath sounds clear and equal bilaterally; no wheezes, no rhonchi, no rales, pulse oximetry 98% on room air not hypoxic ABD/GI: Normal bowel sounds; non-distended; soft, non-tender, no rebound, no guarding; no palpable organomegaly or masses. BACK: The back appears normal and is non-tender to palpation, there is no CVA tenderness EXT: Normal ROM in all joints; non-tender to palpation; no cyanosis, no effusions, no edema SKIN: Normal color for age and race; warm; dry; good turgor; no acute lesions noted NEURO: Moves all extremities equally; Motor and sensory function intact PSYCH: The patient's mood and manner are appropriate. Grooming and personal hygiene are appropriate. MDM: 28-year-old otherwise healthy male presenting for upper respiratory symptoms for 1 week. States he has been wheezing with his cough, reports asthma history as a child. He has no active wheezing at this time, not hypoxic. Has no chest discomfort, low risk for ACS. Will treat as an upper respiratory bronchitis with bronchospasm. EKG normal sinus rhythm without ectopy. No indication for further cardiac work-up at this time TRAVEL OUTSIDE OF THE [place] IN LAST 30 DAYS: No - Related Data Allergies/Adverse Reactions: amoxicillin trihydrate [From Augmentin] Allergy (Intermediate, Verified 08/22/18 01:06) RASH,VOMITING sulfamethoxazole [From Bactrim] Allergy (Intermediate, Verified 08/22/18 01:06) RASH, VOMITING Potassium Clavulanate * [From Augmentin] Allergy (Verified 08/22/18 01:06) trimethoprim [From Bactrim] Allergy (Verified 08/22/18 01:06) Home Medications: MVI Past Medical History - Social History Smoking Status: Never Smoker Family History: None, Hypertension Patient has suicidal ideation: No Patient has homicidal ideation: No - Past Medical History Cardiac Medical History: Reports: Hx Hypertension Denies: Hx Coronary Artery Disease, Hx Heart Attack Pulmonary Medical History: Reports: Hx Asthma - as a child, Hx Pneumonia Denies: Hx Bronchitis, Hx COPD Neurological Medical History: Denies: Hx Cerebrovascular Accident, Hx Seizures Renal/ Medical History: Denies: Hx Peritoneal Dialysis Musculoskeletal Medical History: Denies Hx Arthritis Past Surgical History: Reports: Hx Nose Surgery - septal hematoma, Hx Tonsillectomy, Other - 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 and GERD - Immunizations Immunizations up to date: No Hx Diphtheria, Pertussis, Tetanus Vaccination: Yes Physical Exam - Vital signs Vitals: Temp Pulse Resp BP Pulse Ox 98.9 F 89 20 151/92 H 100 05/06/19 00:52 05/06/19 00:52 05/06/19 00:52 05/06/19 00:52 05/06/19 00:52 Course - Vital Signs Vital signs: Temp Pulse Resp BP Pulse Ox 98.9 F 89 20 136/101 H 98 05/06/19 00:52 05/06/19 00:52 05/06/19 05:01 05/06/19 05:01 05/06/19 05:01 - Laboratory Result Diagrams: 05/06/19 01:52 05/06/19 01:52 Laboratory results interpreted by me: 05/06/19 01:52 Glucose 70 L Discharge - Discharge Clinical Impression: Acute bronchitis with bronchospasm Chest pain Qualifiers: Chest pain type: other chest pain Qualified Code(s): R07.89 - Other chest pain; R07.8 - Other chest pain Condition: Stable Disposition: HOME, SELF-CARE Instructions: Chest Wall Pain ([facility]), Bronchitis With Bronchospasm (Wheezing) ([facility]) Additional Instructions: Use the albuterol inhaler 2 puffs every 4 hours as needed for shortness of breath or wheezing. Take the Tessalon Perles to help with cough. Prednisone and antibiotics as prescribed, you were given today's dose in the emergency department. Follow-up with primary care provider for reevaluation of symptoms call for appointment Prescriptions: Benzonatate [Tessalon Perles 100 mg Capsule] 100 mg PO Q8HP PRN #40 capsule PRN Reason: Prednisone [Deltasone 20 mg Tablet] 2 tab PO DAILY 5 Days #10 tablet Albuterol Sulfate [Proair HFA Inhalation Aerosol 8.5 gm MDI] 2 puff IH Q4H PRN #1 mdi PRN Reason: Azithromycin [Zithromax 250 mg Tablet] 250 mg PO ASDIR PRN #6 tablet PRN Reason: Referrals: ANDRIA IRVIN DO [Primary Care Provider] - Follow up as needed
[2019-05-06] MEDS ORDERED: PREDNISONE 20 MG TABLET PO ONE (05:11)
[2019-05-06] MEDS ORDERED: IPRATROPIUM/ALBUTEROL 0.5-2.5 MG/3 ML AMPUL NEB ONE (05:12)
[2019-05-06] MEDS ORDERED: AZITHROMYCIN 250 MG TABLET PO ONE (05:12)
[2019-05-06 06:11] VITALS: BP 134/98
--- NOTE | 2019-05-06 07:52 | EKG REPORT ---
SEVERITY:- NORMAL ECG - SINUS RHYTHM : Confirmed by: Rickie López MD 06-May-2019 07:51:13
== END 2019-05-06 06:11 | disposition home or self-care (01) ==
LOC: ER 00:44
DX: J20.9 Acute bronchitis, unspecified (principal); R07.9 Chest pain, unspecified; R05 Cough; I10 Essential (primary) hypertension; Z88.0 Allergy status to penicillin; Z88.1 Allergy status to other antibiotic agents; Z87.01 Personal history of pneumonia (recurrent)
CPT/HCPCS: 93005; 94640; 99284; 36415; 87070; 87880; 85025; 80053; 81001; 71046; 93010; J7512; J7620